=== PATIENT | female | born 2000 | race Caucasian/White ===

== ENCOUNTER 2024-12-24 12:09 | Emergency (ER) | payer MEDICARE, MEDICAID, SELFPAY ==
[2024-12-24] VITALS (7 sets, daily range): BP systolic 65–93; BP diastolic 42–54; PULSE 49–99; RESP 16–20; TEMP 32.6–36.8; O2SAT 97–99; BMI 21.6
--- NOTE | 2024-12-24 13:07 | XR_ITS ---
Examination: AP chest single view TECHNIQUE: AP portable supine chest single view Exam date and time: December 16, 2024 1329 hours Comparison December 2018 INDICATIONS: Shortness of breath today. FINDINGS: The film is rotated RPO Normal heart size No lobar pneumonia or pulmonary edema Severe scoliosis with orthopedic support rods IMPRESSION: No pneumonia or pulmonary edema
[2024-12-24 13:29] LABS: Lactate (Lactic Acid) 0.6 mMol/L (0.4-2.0)
[2024-12-24 13:31] LABS: Basophils % (Auto) 0 % (0-2.5); Eosinophils # (Auto) 0.1 Thou/mm3 (0.0-0.5); Eosinophils % (Auto) 1 % (0-10); Hematocrit 38.2 % (36.0-46.0); Hemoglobin 12.4 g/dL (12.0-16.0); Immature Granulocytes % (Auto) 0 % (0-0); Lymphocytes # (Auto) 1.1 Thou/mm3 (1.0-4.8); Lymphocytes % (Auto) 21 % (10-50); Mean Corpuscular HGB Conc 32.5 g/dl (31.0-37.0); Mean Corpuscular Hemoglobin 27.9 pg (25.0-35.0); Mean Corpuscular Volume 86 fL (80-100); Monocytes # (Auto) 0.4 Thou/mm3 (0.0-0.8); Monocytes % (Auto) 8 % (0-12); Neutrophils # (Auto) 3.4 Thou/mm3 (1.8-7.7); Neutrophils % (Auto) 69 % (37-80); Nucleated Red Blood Cell % 0 /100 WBC (0); Platelet Count 98 Thou/mm3 (140-440); RDW Standard Deviation 45.5 fL (36.4-46.3); Red Blood Count 4.44 Miln/mm3 (4.00-5.20)
--- NOTE | 2024-12-24 13:55 | PD.EDNEURO ---
Neuro Symptoms Deficit-RME/HPI General Chief Complaint: General Adult/Misc Complain Stated Complaint: SENT BY PCP :BRADYCARDIC/ HYPOTENSIVE X 2 DAYS Time Seen by Provider: 12/24/24 12:50 Arrival date/time: 12/24/24 12:09 RME / HPI RME / HPI Narrative: This section includes all my notes and documentations, including HPI, PE, and ED course.? Baljinder Hatfield MD HPI: 24-year-old female here with multiple hard to describe concerns. Since yesterday, she reports being unsteady when trying to stand and walk. And shaking, difficult to describe further. She reports no fever or chills or bodyaches or fatigue or malaise. No syncope or near syncope. No headache. No speech or visual impairment. No right-sided weakness or left-sided weakness. No numbness or tingling. No cough or congestion or sore throat. No chest pain or shortness of breath. 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 No other complaints. ROS: All negative except as documented in HPI. Physical Exam: General:? Alert and oriented.? No acute distress when remaining still.??Hypotension and hypothermia noted. Eyes:? Conjunctivae and lids clear.? PERRL. EOMI. ENT:? No nasal congestion.??Pharynx normal. TM normal bilaterally. Neck:? Supple.? No carotid bruit. No JVD. Heart:? RRR.? Lungs:? No respiratory distress.? Good air movement.? No rhonchi, wheezing, rales.?? Abdomen:? Soft and nontender.?? Back: No CVA tenderness. Legs:? No clubbing, cyanosis, edema.? Skin:? Warm and dry.?? Neuro:? Alert and oriented X 3.??No peripheral motor deficits. Cranial nerves II to XII grossly normal. Orthostatic vitals negative. I reviewed all diagnostic test results. My interpretation of the EKG is?Sinus bradycardia (45 bpm) with no ST-T changes. My interpretation of the chest x-ray is no pneumonia or pulmonary edema. My review of the CT report is?negative for acute hemorrhage, mass effect or midline shift. Blood tests and urine tests?unremarkable, except elevated TSH. At this point, diagnoses include?hypotension and hypothermia. Treatment here included?transient hypotension and hypothermia with unclear etiology. Significant improvement noted. Recommended supportive care and close monitoring at home. Based on my best medical judgment, made decision no further evaluation or treatment indicated at this time.? Patient (and father) understands and agrees to the discharge instructions customized and printed, see below. Discharge Instructions from Dr. Hatfield printed for you: 1. After extensive evaluation, there is no life-threatening conditions. Such as stroke or brain tumor or heart attack or blood poisoning. 2. Eat regular nutritious meals. For good hydration, increase oral fluid and maintain clear urine. If dark or yellow, increase oral fluid. 3. To prevent low temperature, wear urine of clothing and stay in warm environment. 4. See a private doctor on 12/25/2024 for recheck and further care. Ask to review all test results and official radiology reports, to make sure you receive all necessary follow-ups and monitoring, including final urine test results from today. 5. Seek immediate medical care with worsening or with any concerns. Baljinder Hatfield MD Related Data Home Medications ?Medication ?Instructions ?Recorded ?Confirmed cariprazine 1.5 mg capsule 1.5 mg PO HS 01/03/19 01/03/19 (Vraylar) fluoxetine 40 mg capsule (Prozac) 40 mg PO QDAY 01/03/19 01/03/19 trazodone 100 mg tablet 100 mg PO HS 01/03/19 01/03/19 Previous Rx's ?Medication ?Instructions ?Recorded hydrocodone 5 mg-acetaminophen 325 1 tab PO TID PRN pain #20 tabs 08/15/20 mg tablet ([place]) ibuprofen 400 mg tablet 400 mg PO Q8H PRN pain #10 tabs 11/12/20 Allergies Allergy/AdvReac Type Severity Reaction Status Date / Time morphine Allergy Severe Rash Verified 12/24/24 12:11 Review of Systems Review of Systems Systems Reviewed: All systems reviewed, normal except as documented Past Medical History Past Medical History CARDIAC: Negative Congestive Heart Failure RESPIRATORY: Negative Chronic Obstructive Pulmonary Disease (COPD) GENITOURINARY: Negative Renal Disease MUSCULOSKELETAL: Positive Scoliosis ENDOCRINE: Negative Diabetes Mellitus Type 1 or Diabetes Mellitus Type 2 OTHER HISTORY: Positive Developmental Delay Social History SMOKING STATUS: Never smoker ED Exam Narrative Physical exam: As noted in HPI Course Quality Measures none Orders Category Date Time Status Bedside COVID-19 Antigen Test NOW Care 12/24/24 13:06 Completed Bedside Influenza A&B Antigen Test NOW Care 12/24/24 13:06 Completed EKG (ED ONLY) *Do not use* NOW Care 12/24/24 13:07 Completed Initiate Warming Therapy NOW Care 12/24/24 13:24 Completed Miscellaneous Nursing Order NOW Care 12/24/24 17:03 Completed Orthostatic Vitals NOW Care 12/24/24 14:54 Completed Saline [Insert IV] NOW Care 12/24/24 13:06 Completed Straight [In and Out Catheter] X1 Care 12/24/24 13:06 Completed Straight [In and Out Catheter] X1 Care 12/24/24 17:05 Completed Diet Regular Diet 12/24/[address] head/brain wo con Stat Exams 12/24/24 16:20 Completed EKG (ED Only) Stat Exams 12/24/24 13:07 Ordered XR chest 1V portable Stat Exams 12/24/24 13:07 Completed Blood Culture (Lab) Stat Lab 12/24/24 13:15 Completed CBC Stat Lab 12/24/24 13:15 Completed CK [Creatine Kinase] Stat Lab 12/24/24 13:53 Completed CMP [Comprehensive Metabolic Panel] Stat Lab 12/24/24 13:53 Completed CRP [C-Reactive Protein] Stat Lab 12/24/24 13:53 Completed ESR [Sed Rate (ESR)] Stat Lab 12/24/24 13:15 Completed HCG Qualitative,Urine Stat Lab 12/24/24 19:35 Completed HCG,Qualitative Serum Stat Lab 12/24/24 13:53 Completed Lactate (Lactic Acid) Stat Lab 12/24/24 13:15 Completed Magnesium Stat Lab 12/24/24 13:53 Completed [place] Screen Stat Lab 12/24/24 13:53 Completed Procalcitonin Stat Lab 12/24/24 13:53 Completed TSH [Thyroid Stimulating Hormone] Stat Lab 12/24/24 13:53 Completed Troponin I Stat Lab 12/24/24 13:53 Completed UA, C/S IF [Urinalysis, C/S if Indicated] Stat Lab 12/24/24 19:35 Completed Dextrose 50% Syr [D50w Syringe Abboject] Med 12/24/24 16:54 Discontinued 50 ml IV X1 ONE Sodium Chloride 0.9% 1000 ml [Ns] 1,000 ml Med 12/24/24 14:54 Discontinued IV 999 mls/hr Sodium Chloride 0.9% 1000 ml [Ns] 1,000 ml Med 12/24/24 17:03 Discontinued IV 999 mls/hr Vital Signs Vital signs: Vital Signs Temperature 90.7 F L 12/24/24 12:51 Pulse Rate 49 L 12/24/24 12:51 Respiratory Rate 18 12/24/24 12:51 Blood Pressure 93/49 L 12/24/24 12:51 Pulse Oximetry (%) 99 12/24/24 12:51 Oxygen Delivery Method Room Air 12/24/24 12:51 Pulse ox is 99% on room air which is adequate. Neuro Symptoms / Deficit Patient data External records reviewed:: [facility] previous records (I reviewed ED visit on 01/01/2022 ) Clinical information provided by:: patient Social determinants that could affect healthcare access:: none Patient has the following chronic illnesses:: Developmental delay, bipolar disorder How is presenting disease/condition affected by chronic disease/condition?: uneffected by Evaluation data The following diagnostics were reviewed and interpreted by me:: EKG tracing(s) (My interpretation of the EKG: Sinus bradycardia (45 bpm) with no ST-T changes. Baljinder Hatfield MD) Lab and/or radiology exams considered but not ordered:: None Interpretation Summary: My interpretation of the chest x-ray is no pneumonia or pulmonary edema. My review of the CT report is?negative for acute hemorrhage, mass effect or midline shift. Medications / Prescriptions Medications or Prescriptions considered but not ordered:: None Medication administrations:: Medication Administration History Discontinued Medications Dextrose (Dextrose 50%-Water Inj 50 Ml Syringe) 50 ml IV X1 ONE Stop: 12/24/24 16:55 Last Admin: 12/24/24 17:18 Dose: 50 ml Documented By: SHAYAN Sodium Chloride (Ns) 1,000 mls @ 999 mls/hr IV .Q1H1M ONE Stop: 12/24/24 15:54 Last Infusion: 12/24/24 16:02 Dose: Infused Documented By: Admin: 12/24/24 15:01 Dose: 999 mls/hr Documented By: SHAYAN Sodium Chloride (Ns) 1,000 mls @ 999 mls/hr IV .Q1H1M ONE Stop: 12/24/24 18:03 Last Infusion: 12/24/24 19:25 Dose: Infused Documented By: Admin: 12/24/24 17:19 Dose: 999 mls/hr Documented By: SHAYAN IVF Consultations Consultation(s) initiated? (list below): No Diagnosis Neuro Differential Diagnosis: convulsions, delirium, subarachnoid hemorrhage, peripheral neuropathy, cerebrovascular accident, multiple sclerosis, transient cerebral ischemia and other Most likely diagnosis given after review of the tests above:: Transient hypotension and hypothermia with unclear etiology Admission Indicated Admission indicated?: not indicated Explain why admission is indicated or not indicated:: Did not meet the admission criteria Admission Request Was there a request for admission?: No Disposition Plan Disposition Plan: Discharge Discharge Attestation Discharge Attestation: The patient and all family members were given an opportunity to ask questions and understood the discharge instructions. Discharge instructions specifically effects, indications for sooner follow up or return to the emergency department, and the expected course of current diagnosis. Patient condition: Stable Discharge Plan Plan Patient Disposition: HOME (Self Care) Prescriptions/Referrals Prescriptions/Med Rec: No Action fluoxetine [Prozac] 40 mg Capsule 40 mg PO QDAY trazodone 100 mg Tablet 100 mg PO HS cariprazine [Vraylar] 1.5 mg Capsule 1.5 mg PO HS hydrocodone-acetaminophen [[place]] 5-325 mg tablet 1 tab PO TID MDD 3 PRN (Reason: pain) Qty: 20 0RF ibuprofen 400 mg tablet 400 mg PO Q8H PRN (Reason: pain) Qty: 10 0RF Referrals: No Primary/Family,Physician [Primary Care Provider] - In 1 week Problem List Clinical Impression: Hypotension, Hypothermia, Hypoglycemia Patient/Caregiver Discharge Instructions Discharge Activity: activity as tolerated Education Materials: ED Hypoglycemia, Nondiabetic, ED Low Blood Pressure, All Causes, ED Hypothermia Treatment Additional Instructions: Discharge Instructions from Dr. Hatfield printed for you: 1. After extensive evaluation, there is no life-threatening conditions. Such as stroke or brain tumor or heart attack or blood poisoning. 2. Eat regular nutritious meals. For good hydration, increase oral fluid and maintain clear urine. If dark or yellow, increase oral fluid. 3. To prevent low temperature, wear urine of clothing and stay in warm environment. 4. See a private doctor on 12/25/2024 for recheck and further care. Ask to review all test results and official radiology reports, to make sure you receive all necessary follow-ups and monitoring, including final urine test results from today. 5. Seek immediate medical care with worsening or with any concerns. Print Language: Serbian Stand Alone Forms: [employer] Info., Patient Portal Info Letter
--- NOTE | 2024-12-24 14:02 | PC.NURSE ---
Informed patient and care provider of need of urine sample.
[2024-12-24 14:04] LABS: Sed Rate (ESR) 16 mm/hr (0-20)
[2024-12-24 14:32] LABS: HCG,Qualitative Serum Negative
[2024-12-24 14:37] LABS: Alanine Aminotransferase 49 U/L (10-49); Albumin/Globulin Ratio 1.7 (1.2-2.2); Alkaline Phosphatase 103 U/L (46-116); Anion Gap 4 (7-16); Aspartate Amino Transferase 38 U/L (0-34); BUN/Creatinine Ratio 22 Ratio (12-20); Bilirubin,Total 0.3 mg/dL (0.3-1.2); Blood Urea Nitrogen 11 mg/dL (9-23); C-Reactive Protein 0.8 mg/dL (0.0-0.9); Calcium 9.8 mg/dL (8.3-10.6); Calcium (Corrected) 9.8 mg/dL (8.5-10.1); Carbon Dioxide 34.3 mMol/L (20.0-31.0); Chloride 102 mMol/L (98-107); Creatine Kinase 78 U/L (34-171); Creatinine (Component) 0.5 mg/dL (0.6-1.3); Estimated Creatinine Clearance 97.7 mL/min (>60); Globulin 2.3 gm/dL (2.3-3.5); Glucose 59 mg/dL (74-106); Magnesium 1.8 mg/dL (1.6-2.6); Osmolality,Calculated 276 (275-295); Potassium 4.3 mMol/L (3.4-5.1); Procalcitonin < 0.04 ng/ml (0.0-0.49); Sodium 140 mMol/L (136-145); Thyroid Stimulating Hormone 9.96 uIU/mL (0.55-4.78); Total Protein 6.3 gm/dL (5.7-8.2); Troponin I < 0.020 ng/mL (0.0-0.045); eGFR > 60 See Note
[2024-12-24 14:48] LABS: Mono Screen Negative (Negative)
--- NOTE | 2024-12-24 15:00 | PC.NURSE ---
PT RECTALPROBE FOR THERMOMETER CAME OUT, THIS RN REPLACED IT AT THIS TIME, ATTEMPTED TO GET URINE, PT UNABLE TO GO, WILL TRY AGAIN, PT REFUSING IN AND OUT CATHETER
[2024-12-24] MEDS: SODIUM CHLORIDE 0.9% 1000 ML 1,000 ML 999 ML IV ×2 (15:01→17:19)
--- NOTE | 2024-12-24 16:20 | XR_ITS ---
Examination: CT brain head without contrast. 2-D sagittal coronal reconstructions Date and time of exam:December 16, 2024 at 1612 hours INDICATIONS: Onset weakness and unsteadiness today CTDI: vol (mGy):42.3 DLP: (mGycm):864 Technique: Multiple CT axial sections of the brain have been obtained, 5 mm slice thickness. Contrast has not been administered. 2-D sagittal, coronal reconstructions have been obtained Low dose protocols were performed. One or more of the following dose reduction techniques were used; automated exposure control, adjustment of the mA and/or KV according to patient size, use of iterative reconstruction technique. Findings: No significant ventricular enlargement. Intra-axial or extra-axial hemorrhage density is not seen. No mass effect or midline shift Basal cisterns are not remarkable. Fourth ventricle is midline. Cranial vault intact. Impression: Negative for acute hemorrhage, mass effect or midline shift Advise clinical correlation and follow-up accordingly
[2024-12-24] MEDS: DEXTROSE 50%-WATER INJ 50 ML SYRINGE IV (17:18)
--- NOTE | 2024-12-24 17:34 | PD.HHCONS ---
[facility] Consultation - Hospitalist Data of Consult Primary Care Provider: Physician No Primary/Family Consult Narrative History of present illness: Patient is a 24-year-old female with history of Prader-Willi syndrome, seizure, and developmental delay, who presented with a chief complaint of hypotension and hypothermia. Patient was sent by her PCP. She was found to have bradycardia and hypotension. Patient has baseline developmental delay and did not complain of any symptoms besides feeling cold. She reported no nausea, vomiting, subjective fevers, difficulty breathing, or abdominal pain. In the ED, she was hypothermic 90.7 Fahrenheit. She was hypotensive 84/54. She was bradycardic in the 40s. CBC and BMP showed no pertinent abnormalities. CT head was negative for acute changes. Patient received 1 L of IV fluids in the ED. Her HR improved to 88. Patient does not smoke cigarettes, drink alcohol, or use illicit drugs cc:: cc: Review of Systems Review of Systems Narrative Review of Systems: 12 point of system reviewed. All negative except as mentioned in the HPI Meds Home Medications and Allergies Home Medications ?Medication ?Instructions ?Recorded ?Confirmed ?Type cariprazine 1.5 mg capsule 1.5 mg PO HS 01/03/19 01/03/19 History (Vraylar) fluoxetine 40 mg capsule (Prozac) 40 mg PO QDAY 01/03/19 01/03/19 History trazodone 100 mg tablet 100 mg PO HS 01/03/19 01/03/19 History Allergies Allergy/AdvReac Type Severity Reaction Status Date / Time morphine Allergy Severe Rash Verified 12/24/24 12:11 Exam Vital Signs Temp Pulse Resp BP Pulse Ox O2 Del Method 92.1 F L 70 16 88/47 L 99 Room Air 12/24/24 14:51 12/24/24 16:08 12/24/24 14:51 12/24/24 16:08 12/24/24 12:51 12/24/24 12:51 Narrative General: Alert and oriented x3. Has a slowed response and is difficult to understand likely from her baseline developmental delay Eyes: Pupils are equal and reactive to light bilaterally. HEENT: Atraumatic, normocephalic. No JVD noted. Scratch noted on the scalp, self-induced per family. Mucous membranes are dry Cardiovascular: Normal S1 and S2. Normal rate and regular rhythm. No murmurs appreciated. No peripheral pitting edema noted. No JVD noted. Respiratory: No respiratory distress. Lungs are clear to auscultation bilaterally. No wheezing or crackles heard. Abdomen: Soft, nontender, nondistended. Skin: No rash. Cold to touch. Musculoskeletal: No gross injuries. Able to move all 4 extremities. Neuro: Alert and oriented x3. Sensation is intact throughout. Strength is 5/5 and symmetric. No focal neuro deficits. Psych: Normal affect and mood. Results - Hospitalist Labs Diagrams: 12/24/24 13:15 12/24/24 13:53 Labs: Short CBC 12/24/24 Range/Units 13:15 WBC 5.0 (3.6-11.0) Thou/mm3 Hgb 12.4 (12.0-16.0) g/dL Hct 38.2 (36.0-46.0) % Plt Count 98 L (140-440) Thou/mm3 BMP 12/24/24 13:53 Sodium 140 Potassium 4.3 Chloride 102 Carbon Dioxide 34.3 H BUN 11 Creatinine 0.5 L Glucose 59 L Calcium 9.8 Cardiac Enzymes 12/24/24 Range/Units 13:53 Total Creatine Kinase 78 (34-171) U/L Troponin I < 0.020 (0.0-0.045) ng/mL Liver Function 12/24/24 Range/Units 13:53 Total Bilirubin 0.3 (0.3-1.2) mg/dL AST 38 H (0-34) U/L ALT 49 (10-49) U/L Alkaline Phosphatase 103 (46-116) U/L Albumin 4.0 (3.5-5.0) gm/dL Assessment & Plan -Hospitalist Patient Synopsis 24-year-old female with Prader-Willi syndrome who presented with hypotension, bradycardia, and hypothermia Hypertension Bradycardia Hypothermia Dehydration Her bradycardia resolved with IV fluids Patient clinically appears dehydrated She is asymptomatic except for feeling cold No evidence of infection Patient's hypotension is likely from dehydration Her hypothermia is likely from low room temperature as the weather is very cold outside. Unlikely due to infection EKG reviewed by me: Showed sinus bradycardia without pertinent ST or T wave changes Plan: Markus almaguer in the ED Warm ED room Continue IV fluids Monitor vitals If BP improves and temperature improves, she can be discharged from ED. If he remains hypotensive and hypothermic despite above-mentioned treatment, may admit for further evaluation and management. Seizure disorder Prader-Willi syndrome Developmental delay with behavioral disturbances Resume home medications Follow-up with PCP Discussed with ED physician Discussed with locomotive electrician Measures Quality Measures none
--- NOTE | 2024-12-24 18:00 | PC.NURSE ---
PT CONTINUES WARM THERAPY WITH PROSPER RAUSCH. 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 PT GIVEN SANDWICH AND CHIPS.
[2024-12-24 19:51] LABS: Collection Type, Urine Clean Catch; Squamous Epithelial Cell,Urine 0 /hpf (0-5)
[2024-12-24 20:24] LABS: Bilirubin,Urine Negative (Negative); Blood,Urine Negative (Negative); Clarity,Urine Clear (Clear/Hazy); Color,Urine Lt-Yellow (Lt Yel-Yel); Culture Indicated,Urine Not Indicated; Glucose, Urine 3+ (Negative); Ketones,Urine Negative (Negative); Leukocyte Esterase,Urine Negative (Negative); Nitrite,Urine Negative (Negative); PH,Urine 6.5 (5.0-7.0); Protein,Urine Negative (Neg - Trace); RBC,Urine 1 /hpf (0-3); Specific Gravity,Urine 1.011 (1.001-1.035); Urobilinogen,Urine Negative mg/dL (0.0-1.0); WBC,Urine < 1 /hpf (0-5)
[2024-12-24 20:32] LABS: HCG Qualitative,Urine Negative
== END 2024-12-25 | disposition home or self-care (01) ==
PROVIDERS: Emergency Provider Emergency Medicine
DX: T68.XXXA Hypothermia, initial encounter (principal); I95.9 Hypotension, unspecified; E16.2 Hypoglycemia, unspecified; R00.1 Bradycardia, unspecified; R06.02 Shortness of breath; R53.1 Weakness
CPT/HCPCS: 36415; 70450; 71045; 80053; 81001; 81025; 82550; 83605; 83735; 84145; 84443; 84484; 84703; 85025; 85652; 86140; 86308; 87040; 87400; 87811; 93005; 96360; 96361; 99284; J7030

== ENCOUNTER 2025-01-23 10:46 | Inpatient (IN) | payer MEDICARE, MEDICAID, SELFPAY ==
[2025-01-23] VITALS (12 sets, daily range): BP systolic 76–112; BP diastolic 38–80; PULSE 55–102; RESP 15–23; TEMP 32.8–36.5; O2SAT 94–99; BMI 23.8; BMI 24.4
--- NOTE | 2025-01-23 11:02 | XR_ITS ---
Examination: CT brain head without contrast. 2-D sagittal coronal reconstructions Date and time of exam:January 23, 2025 1113 hrs. Indications: Onset generalized head pain today with loss of balance CTDI: vol (mGy):43.3 DLP: (mGycm):869 Technique: Multiple CT axial sections of the brain have been obtained, 5 mm slice thickness. Contrast has not been administered. 2-D sagittal, coronal reconstructions have been obtained Low dose protocols were performed. One or more of the following dose reduction techniques were used; automated exposure control, adjustment of the mA and/or KV according to patient size, use of iterative reconstruction technique. Findings: No significant ventricular enlargement. Small area encephalomalacia posterior right parietal lobe Intra-axial or extra-axial hemorrhage density is not seen. No mass effect or midline shift Basal cisterns are not remarkable. Fourth ventricle is midline. Cranial vault intact. Prominent ethmoid chronic sinusitis Impression: Negative for acute hemorrhage, mass effect or midline shift If symptoms including ataxia persist, consider brain MRI follow-up
--- NOTE | 2025-01-23 11:03 | PD.EDRME ---
Rapid Medical Screening Exam RME Arrival date/time: 01/23/25 10:46 24-year-old female with a history of developmentally delayed presents to the emergency room with a chief complaint of a headache, cough, fevers x 2 days I have greeted and performed a focused initial assessment of this patient. A comprehensive ED assessment and evaluation of the patient, analysis of all test results, and completion of the medical decision making process will be conducted by additional ED providers. Chief Complaint: Headache Vital signs reviewed by provider: Yes
--- NOTE | 2025-01-23 11:26 | XR_ITS ---
Examination: AP chest single view Technique: AP portable upright chest single view Exam date and time: January 23, 2025 1131 hrs. Comparison December 16, 2024 Sepsis shortness of breath today. Findings: Prominent right lower lobe pneumonia Large retrocardiac gastric hernia Orthopedic support rods dorsal spine No significant cardiac enlargement Impression: Significant right lower lung zone pneumonia
[2025-01-23 11:33] LABS: Lactate (Lactic Acid) 0.5 mMol/L (0.4-2.0)
[2025-01-23 11:33] LABS: Collection Type, Urine Clean Catch; Squamous Epithelial Cell,Urine 0 /hpf (0-5)
--- NOTE | 2025-01-23 11:35 | PD.EDHA ---
ED Headache RME/HPI General Chief Complaint: Headache Stated Complaint: HEADACHE, OFF BALANCE , COUGH Time Seen by Provider: 01/23/25 11:10 Source: patient Arrival date/time: 01/23/25 10:46 This is a 24-year-old female history of intellectual disability, Prader-Willi, spinal surgery age of 64 years old and behavioral issues was brought into the emergency department by caregiver for complaints of 3 days generalized weakness, headache. According to the caregiver the patient has been experiencing similar symptoms since December 24 on is her last ER visit. She has experiencing hypertension, and hypothermia. Today she is brought in on a second occasion due to increased generalized weakness. She did follow-up with her doctor Dr. Lin outpatient which he sent her to cardiology. Caregiver reports the patient had a full cardiology workup with echo x 2 which were normal. Patient continues to have symptoms. Denies fever, chills no rigors no lethargy. Mode of arrival: ambulatory Limitations: physical limitation RME / HPI RME / HPI Narrative: 01/23/25 10:46 24-year-old female with a history of developmentally delayed presents to the emergency room with a chief complaint of a headache, cough, fevers x 2 days I have greeted and performed a focused initial assessment of this patient. A comprehensive ED assessment and evaluation of the patient, analysis of all test results, and completion of the medical decision making process will be conducted by additional ED providers. Related Data Home Medications ?Medication ?Instructions ?Recorded ?Confirmed fluoxetine 40 mg capsule (Prozac) 60 mg PO QDAY 01/03/19 01/23/25 trazodone 100 mg tablet 100 mg PO HS 01/03/19 01/23/25 brexpiprazole 4 mg tablet (Rexulti) 4 mg PO QDAY 01/23/25 01/23/25 docusate sodium 100 mg capsule 100 mg PO BID 01/23/25 01/23/25 loratadine 10 mg tablet 10 mg PO QDAY 01/23/25 01/23/25 Allergies Allergy/AdvReac Type Severity Reaction Status Date / Time morphine Allergy Severe Rash Verified 01/23/25 10:49 Review of Systems Review of Systems Systems Reviewed: All systems reviewed, normal except as documented Narrative Review of Systems: Gen: No fever, no chills, no weight loss, malaise fatigue EYES: No discharge, no visual changes, no pain HEENT: No ear pain, no congestion, no sore throat PULM: No shortness of breath, no cough, no congestion CV: No chest pain, no dyspnea on exertion, no palpitations GI: No nausea, no vomiting, no diarrhea, no pain, no constipation : No frequency, no urgency, no dysuria Musc/skel: No joint pain, no back pain Skin: No rash Psyc: No hallucinations, no depression Heme/Lymph: No easy bleeding or bruising tendencies Neuro: No weakness, + headache ED Exam Narrative Physical exam: Chronically ill-appearing 24-year-old female entering questions slow to answer questions. Verbal. Appears mildly pale General Limitations: Present physical limitation General appearance: Present alert Head Head exam: Present atraumatic and other Expanded Head Exam Head exam physical: Present abrasion Head image:  1. Left lateral forehead scab erythemic mild cellulitic pattern. Right ecchymosis mild right eye. Eye Eye exam: Present normal appearance, PERRL, EOMI and other ENT ENT exam: Present normal exam, normal oropharynx and mucous membranes moist Neck Neck exam: Present normal inspection, full ROM and trachea midline Chest Chest inspection: Present normal inspection and symmetric chest wall rise Respiratory Respiratory exam: Present normal lung sounds bilaterally; Absent respiratory distress, wheezes or stridor Cardiovascular Cardiovascular exam: Present regular rate, normal rhythm and normal heart sounds Abdominal Exam Abdominal exam: Present soft, tenderness, normal bowel sounds and other (Superficial abrasions noted to the left mid abdomen. Mild tenderness); Absent distention or rebound Extremities Exam Extremities exam: Present normal inspection, full ROM and normal capillary refill; Absent pedal edema Expanded Lower Extremity Exam Knee exam: Present other (Bilateral lower extremities multiple bruising throughout lower legs.) Back Exam Back exam: Present normal inspection and full ROM Neurological Exam Neurological exam: Present alert, oriented X3 and CN II-XII intact Psychiatric Psychiatric exam: Present normal affect and normal mood Skin Skin exam: Present warm, dry, intact and normal color Course Quality Measures none Orders Category Date Time Status Bedside COVID-19 Antigen Test NOW Care 01/23/25 11:02 Active Bedside Influenza A&B Antigen Test NOW Care 01/23/25 11:[address] Screening NOW Care 01/23/25 13:03 Active EKG (ED ONLY) *Do not use* NOW Care 01/23/25 11:37 Completed Initiate Warming Therapy NOW Care 01/23/25 12:46 Active Miscellaneous Nursing Order NOW Care 01/23/25 11:27 Active Miscellaneous Nursing Order X1 Care 01/23/25 11:48 Active Occult Blood,Stool (Nursing) NOW Care 01/23/25 13:[address] abdomen pelvis w con Stat Exams 01/23/25 13:[address] head/brain wo con Stat Exams 01/23/25 11:02 Completed EKG (ED Only) Stat Exams 01/23/25 11:37 Draft XR chest 1V portable Stat Exams 01/23/25 11:26 Completed Ammonia Stat Lab 01/23/25 12:05 Completed BNP [B-Type Natriuretic Peptide] Stat Lab 01/23/25 12:05 Completed Blood Culture (Lab) Stat Lab 01/23/25 11:25 Received CBC Stat Lab 01/23/25 11:25 Completed CMP [Comprehensive Metabolic Panel] Stat Lab 01/23/25 11:25 Completed Drug Screen,Urine Stat Lab 01/23/25 11:24 Completed Free T3 Stat Lab 01/23/25 11:25 Completed HCG,Qualitative Serum Stat Lab 01/23/25 11:25 Completed Lactate (Lactic Acid) Stat Lab 01/23/25 11:25 Completed JONG [Alcohol, Blood Medical] Stat Lab 01/23/25 12:05 Completed Magnesium Stat Lab 01/23/25 11:25 Completed PT [Prothrombin Time with INR] Stat Lab 01/23/25 11:25 Completed Procalcitonin Stat Lab 01/23/25 11:25 Completed Sed Rate (ESR) Stat Lab 01/23/25 11:25 Completed T4 (Thyroxine) Stat Lab 01/23/25 11:25 Completed Thyroid Stimulating Hormone Stat Lab 01/23/25 11:25 Completed Troponin I Stat Lab 01/23/25 11:25 Completed UA [Urinalysis] Stat Lab 01/23/25 11:24 Completed Urine Culture Stat Lab 01/23/25 11:24 Received Venous Blood Gas Stat Lab 01/23/25 12:05 Completed Magnesium Sulfate 2 GM Ivpb [Magnesium Sulfate Ivpb] Med 01/23/25 13:41 Discontinued 2 gm in 50 ml IV X1 Sodium Chloride 0.9% 1000 ml [Ns] 1,000 ml Med 01/23/25 11:26 Discontinued IV 999 mls/hr cefTRIAXone [Rocephin] 1,000 mg Med 01/23/25 13:13 Discontinued SODIUM CHLORIDE 0.9% (Popper) [NS 0.9% (Popper)] 50 ml IV X1 Vital Signs Vital signs: Vital Signs Pulse Rate 77 01/23/25 11:02 Respiratory Rate 20 01/23/25 11:02 Blood Pressure 76/38 L 01/23/25 11:02 Pulse Oximetry (%) 95 01/23/25 11:02 Oxygen Delivery Method Room Air 01/23/25 11:02 Headache MDM Narrative MDM Narrative:: This is a 24-year-old female history of intellectual disability, Prader-Willi, spinal surgery age of 64 years old and behavioral issues was brought into the emergency department by caregiver for complaints of 3 days generalized weakness, headache. According to the caregiver the patient has been experiencing similar symptoms since December 24 on is her last ER visit. She has experiencing hypertension, and hypothermia. Today she is brought in on a second occasion due to increased generalized weakness. She did follow-up with her doctor Dr. Lin outpatient which he sent her to cardiology. Caregiver reports the patient had a full cardiology workup with echo x 2 which were normal. Patient continues to have symptoms. Denies fever, chills no rigors no lethargy. 1115-Upon arrival patient's blood pressure was 76/38, temperature 91 rectal. Immediately when I evaluated the patient sepsis alert was called IV fluids 30/kg ordered initiated in ordered additional labs. Immediately after I assume care of patient I did discuss my case with my attending physician Dr. Hernandez. Has been notified in the process of the care of this patient. And agrees with plan of care. Patient is awake and alert answering questions according to the provide the patient is slower to respond questions has been worsening over this past month. CT reviewed which is negative for any acute abnormalities, chest x-ray shows some right lower base pneumonia. Ceftriaxone ordered. Urinalysis is negative. CBC-no leukocytosis. Lactic, Pro-Segun negative. Blood cultures pending. noted anemia drop 2 g from last visit. CMP-electrolyte imbalance. Platelets lowered from last visit. PT/INR normal. elevated liver enzymes Upon reassessment patient's blood pressure did improve to 98/65, 66 heart rate temperature still 91 rectal. Patient oxygenating well. On room air. At this time I do feel she continue receiving her IV fluids, ceftriaxone. Warming measures to continue. Most likely admission after CT abdomen and pelvis orders. Dx# Hypotension, hypothermia Hypothyroidism Electrolyte imbalance. Pneumonia rule out sepsis Called and spoke to on-call hospitalist Yarely Solis. Case discussed. Pending admission. The high probability of sudden, clinically significant deterioration in the patient?s condition required the highest level of my preparedness to intervene urgently. The services I provided to this patient were to treat and/or prevent clinically significant deterioration.Services included the following: chart data review, reviewing nursing notes and/or old charts, documentation time, internal control consultant collaboration regarding findings and treatment options, medication orders and management, direct patient care, vital sign assessments and ordering, interpreting and reviewing diagnostic studies and lab tests.Aggregate critical care time includes only time during which I was engaged in work directly related to the patient?s care, as described above, whether at bedside or elsewhere in the Emergency Department. It did not include time spent performing other reported procedures or the services of residents, students, nurses or physician assistants. Patient data External records reviewed:: [facility] previous records Clinical information provided by:: patient and cone worker Social determinants that could affect healthcare access:: none Patient has the following chronic illnesses:: Cardiomegaly, intellectual disabilities, behavioral disabilities How is presenting disease/condition affected by chronic disease/condition?: uneffected by Evaluation data The following diagnostics were reviewed and interpreted by me:: lab results, radiology exam(s) and EKG tracing(s) Lab and/or radiology exams considered but not ordered:: Imaging ordered. Interpretation Summary: Examination: CT brain head without contrast. 2-D sagittal coronal reconstructions Date and time of exam:January 23, 2025 1113 hrs. Indications: Onset generalized head pain today with loss of balance CTDI: vol (mGy):43.3 DLP: (mGycm):869 Technique: Multiple CT axial sections of the brain have been obtained, 5 mm slice thickness. Contrast has not been administered. 2-D sagittal, coronal reconstructions have been obtained Low dose protocols were performed. One or more of the following dose reduction techniques were used; automated exposure control, adjustment of the mA and/or KV according to patient size, use of iterative reconstruction technique. Findings: No significant ventricular enlargement. Small area encephalomalacia posterior right parietal lobe Intra-axial or extra-axial hemorrhage density is not seen. No mass effect or midline shift Basal cisterns are not remarkable. Fourth ventricle is midline. Cranial vault intact. Prominent ethmoid chronic sinusitis Impression: Negative for acute hemorrhage, mass effect or midline shift If symptoms including ataxia persist, consider brain MRI follow-up Examination: AP chest single view Technique: AP portable upright chest single view Exam date and time: January 23, 2025 1131 hrs. Comparison December 16, 2024 Sepsis shortness of breath today. Findings: Prominent right lower lobe pneumonia Large retrocardiac gastric hernia Orthopedic support rods dorsal spine No significant cardiac enlargement Impression: Significant right lower lung zone pneumonia Examination: CT abdomen with intravenous contrast CT pelvis with intravenous contrast 2-D coronal reconstructions 2-D sagittal reconstructions Date and time of exam:January 23, 2025 1334 hrs. Indications: Abdominal pain and distention this week, elevated liver function tests on laboratory examination. CTDI: vol (mGy) 4.16 DLP: (mGycm) 182 Technique: Multiple axial sections of the abdomen and pelvis have been obtained. 64 slice high-resolution scanner used. 3 mm axial sections have been obtained, post intravenous injection 40 cc [id number] 2-D sagittal, coronal reconstructions obtained. Low dose protocols were performed. One or more of the following dose reduction techniques were used; automated exposure control, adjustment of the mA and/or KV according to patient size, use of iterative reconstruction technique. Findings: Significant pneumonia in the right middle lobe, consider aspiration pneumonia Large retrocardiac gastric hernia with rotation of the stomach No focal liver or splenic lesions No gallstones No pancreatic mass Aorta normal size No bowel obstruction Normal appendix Colonic diverticulosis, no diverticulitis Distended urinary bladder Mild free fluid in the pelvis Atrophic uterus Severe osteopenia Partial visualization extensive thoracolumbar orthopedic stabilization process, severe lumbar dextroscoliosis Impression: Significant pneumonia in the right middle lobe, consider aspiration pneumonia Large retrocardiac gastric hernia with rotation of the stomach and possible obstruction of the stomach at the level of the hemidiaphragm, clinical correlation advised, consider surgical consultation EKG medically necessary in the evaluation of sepsis. And interpreted by me and ED physician at the time of patient evaluation. Normal sinus rhythm with a rate of 51. MD and QT intervals within normal limits. No ST/T changes. No STEMI. Interpretation: Bradycardia normal EKG. Medications / Prescriptions Medications or Prescriptions considered but not ordered:: no Medication administrations:: Medication Administration History Discontinued Medications Sodium Chloride (Ns) 1,000 mls @ 999 mls/hr IV .Q1H1M ONE Stop: 01/23/25 12:26 Last Infusion: 01/23/25 13:56 Dose: Infused Documented By: Admin: 01/23/25 12:45 Dose: 999 mls/hr Documented By: CALLIE Ceftriaxone Sodium 1,000 mg/ (Sodium Chloride) 50 mls @ 100 mls/hr IV X1 ONE Stop: 01/23/25 13:42 Last Infusion: 01/23/25 15:10 Dose: Infused Documented By: Admin: 01/23/25 14:45 Dose: 100 mls/hr Documented By: OCTAVIO Magnesium Sulfate (Magnesium Sulfate Ivpb) 2 gm in 50 mls @ 25 mls/hr IV X1 ONE Stop: 01/23/25 15:40 Last Admin: 01/23/25 15:14 Dose: 25 mls/hr Documented By: CALLIE All medications administered and effective Consultations Consultation(s) initiated? (list below): No Diagnosis Differential diagnosis headache: tension headache, headache, sinusitis and other Most likely diagnosis given after review of the tests above:: Dx# Hypotension, hypothermia Hypothyroidism Electrolyte imbalance. Pneumonia rule out sepsis Admission Indicated Admission indicated?: indicated Admission Request Was there a request for admission?: Yes Admission Attestation Admission request attestation: Discussed case with [] from Hospitalist service regarding admission. Discussed patients ED course, exam findings, labs, and radiology results. The Hospitalist [agrees,declines] to accept the patient for admission. Disposition Plan Disposition Plan: Admit Discharge Plan Plan Patient Disposition: Admit Acute Care w/in Hospital Patient condition on transfer: Stable Prescriptions/Referrals Prescriptions/Med Rec: No Action fluoxetine [Prozac] 40 mg Capsule 60 mg PO QDAY trazodone 100 mg Tablet 100 mg PO HS docusate sodium 100 mg capsule 100 mg PO BID loratadine 10 mg tablet 10 mg PO QDAY Rexulti 4 mg tablet 4 mg PO QDAY Referrals: John Millard MD [Primary Care Provider] - In 1 week Problem List Clinical Impression: Hypothyroidism, Electrolyte imbalance, Hypothermia, Pneumonia Patient/Caregiver Discharge Instructions Discharge Activity: activity as tolerated Print Language: Setswana Stand Alone Forms: [employer]cny Award Info., Patient Portal Info Letter PA/ASSEMBLER CAMPER Supervising Physician PA/ASSEMBLER CAMPER Supervising Physician: Dr. Hernandez
--- NOTE | 2025-01-23 11:37 | EKG_ITS ---
[facility] Test Date: 2025-01-23 Pat Name: SELENE PENA Department: Room: - Gender: Female Half Sole Fitter: : 2000 Requested By: Adilia Naidu ([facility]) Ramón Order Number: [id number] Reading MD: Adilia Naidu ([facility]) Ramón Measurements Intervals [employer] Rate: 51 P: 48 OK: 168 QRS: 51 QRSD: 102 T: 63 QT: 405 QTc: 375 Interpretive Statements ELECTRONIC ATRIAL PACEMAKER ABNORMAL RHYTHM ECG Compared to ECG 12/25/2024 13:37:22 Sinus bradycardia no longer present /store/S0/[id number].pdf
[2025-01-23 11:42] LABS: Basophils % (Auto) 0 % (0-2.5); Eosinophils % (Auto) 0 % (0-10); Hematocrit 31.5 % (36.0-46.0); Hemoglobin 10.5 g/dL (12.0-16.0); Immature Granulocytes % (Auto) 1 % (0-0); Immature Granulocytes Auto 0.03 Thou/mm3 (0.00-0.00); Lymphocytes # (Auto) 0.4 Thou/mm3 (1.0-4.8); Lymphocytes % (Auto) 7 % (10-50); Mean Corpuscular HGB Conc 33.3 g/dl (31.0-37.0); Mean Corpuscular Hemoglobin 28.1 pg (25.0-35.0); Mean Corpuscular Volume 84 fL (80-100); Monocytes # (Auto) 0.3 Thou/mm3 (0.0-0.8); Monocytes % (Auto) 6 % (0-12); Neutrophils # (Auto) 4.5 Thou/mm3 (1.8-7.7); Neutrophils % (Auto) 85 % (37-80); Nucleated Red Blood Cell # 0.02 Thou/mm3 (0.00-0.00); Nucleated Red Blood Cell % 0 /100 WBC (0); RDW Standard Deviation 47.1 fL (36.4-46.3); Red Blood Count 3.74 Miln/mm3 (4.00-5.20); White Blood Count 5.3 Thou/mm3 (3.6-11.0)
[2025-01-23 11:45] LABS: Bilirubin,Urine Negative (Negative); Blood,Urine Negative (Negative); Clarity,Urine Clear (Clear/Hazy); Color,Urine Colorless (Lt Yel-Yel); Glucose, Urine Negative (Negative); Ketones,Urine Negative (Negative); Leukocyte Esterase,Urine Negative (Negative); Nitrite,Urine Negative (Negative); Protein,Urine Negative (Neg - Trace); RBC,Urine < 1 /hpf (0-3); Specific Gravity,Urine 1.004 (1.001-1.035); Urobilinogen,Urine Negative mg/dL (0.0-1.0); WBC,Urine < 1 /hpf (0-5)
[2025-01-23 12:09] LABS: Alanine Aminotransferase 254 U/L (10-49); Albumin, Serum 3.7 gm/dL (3.5-5.0); Albumin/Globulin Ratio 1.5 (1.2-2.2); Alkaline Phosphatase 137 U/L (46-116); Anion Gap 6 (7-16); Aspartate Amino Transferase 135 U/L (0-34); BUN/Creatinine Ratio 27 Ratio (12-20); Bilirubin,Total 0.5 mg/dL (0.3-1.2); Blood Urea Nitrogen 8 mg/dL (9-23); Calcium 9.7 mg/dL (8.3-10.6); Calcium (Corrected) 9.9 mg/dL (8.5-10.1); Carbon Dioxide 31.6 mMol/L (20.0-31.0); Chloride 95 mMol/L (98-107); Creatinine (Component) 0.3 mg/dL (0.6-1.3); Estimated Creatinine Clearance 173.2 mL/min (>60); Globulin 2.5 gm/dL (2.3-3.5); Glucose 72 mg/dL (74-106); Osmolality,Calculated 263 (275-295); Potassium 3.9 mMol/L (3.4-5.1); Procalcitonin 0.08 ng/ml (0.0-0.49); Sodium 133 mMol/L (136-145); Total Protein 6.2 gm/dL (5.7-8.2); eGFR > 60 See Note
[2025-01-23 12:11] LABS: Base Excess, Venous 8 (-3-3); O2 Saturation, Venous 59 % (96-97); PCO2, Venous 49 mmHg (36-56); PO2, Venous 29 mmHg (15-58); pH, Venous 7.45 (7.33-7.66)
[2025-01-23 12:11] LABS: HCG,Qualitative Serum Negative
[2025-01-23 12:12] LABS: Platelet Count 34 Thou/mm3 (140-440)
[2025-01-23 12:15] LABS: Sed Rate (ESR) 66 mm/hr (0-20)
[2025-01-23 12:20] LABS: T4 (Thyroxine) 9.2 mcg/dL (4.5-10.9)
[2025-01-23 12:21] LABS: Prothrombin Time 10.5 Seconds (9.0-12.2)
[2025-01-23 12:26] LABS: Free T3 2.4 pg/mL (2.3-4.2); Magnesium 1.4 mg/dL (1.6-2.6); Thyroid Stimulating Hormone 18.71 uIU/mL (0.55-4.78); Troponin I < 0.002 ng/mL (0.0-0.045)
[2025-01-23 12:26] LABS: Amphetamine/Methamp Scrn,U Negative (Negative); Barbiturate Screen,Urine Negative (Negative); Benzodiazepines Screen,Urine Negative (Negative); Benzoylecgonine Screen, Ur Negative (Negative); Fentanyl Screen,Urine Negative (Negative); Opiate Screen,Urine Negative (Negative); THC Screen,Urine Negative (Negative)
[2025-01-23 12:33] LABS: Alcohol, Blood Medical < 3.0 mg/dL (0-10.0); Ammonia < 10 uMol/L (11-32)
[2025-01-23 12:35] LABS: B-Type Natriuretic Peptide 112 pg/mL (0-100)
[2025-01-23] MEDS: SODIUM CHLORIDE 0.9% 1000 ML 1,000 ML 999 ML IV (12:45)
--- NOTE | 2025-01-23 13:03 | XR_ITS ---
Examination: CT abdomen with intravenous contrast CT pelvis with intravenous contrast 2-D coronal reconstructions 2-D sagittal reconstructions Date and time of exam:January 23, 2025 1334 hrs. Indications: Abdominal pain and distention this week, elevated liver function tests on laboratory examination. CTDI: vol (mGy) 4.16 DLP: (mGycm) 182 Technique: Multiple axial sections of the abdomen and pelvis have been obtained. 64 slice high-resolution scanner used. 3 mm axial sections have been obtained, post intravenous injection 40 cc Isovue-370 2-D sagittal, coronal reconstructions obtained. Low dose protocols were performed. One or more of the following dose reduction techniques were used; automated exposure control, adjustment of the mA and/or KV according to patient size, use of iterative reconstruction technique. Findings: Significant pneumonia in the right middle lobe, consider aspiration pneumonia Large retrocardiac gastric hernia with rotation of the stomach No focal liver or splenic lesions No gallstones No pancreatic mass Aorta normal size No bowel obstruction Normal appendix Colonic diverticulosis, no diverticulitis Distended urinary bladder Mild free fluid in the pelvis Atrophic uterus Severe osteopenia Partial visualization extensive thoracolumbar orthopedic stabilization process, severe lumbar dextroscoliosis Impression: Significant pneumonia in the right middle lobe, consider aspiration pneumonia Large retrocardiac gastric hernia with rotation of the stomach and possible obstruction of the stomach at the level of the hemidiaphragm, clinical correlation advised, consider surgical consultation
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
[2025-01-23 13:57] LABS: Slide Review Platelets confirmed
[2025-01-23] MEDS: cefTRIAXone 1,000 MG in SODIUM CHLORIDE 0.9% (Popper) 50 ML 100 MG IV (14:45)
[2025-01-23] MEDS: Magnesium Sulfate 2 GM Ivpb 2 GM/50 ML BAG IV (15:14)
--- NOTE | 2025-01-23 15:53 | XR_ITS ---
Examination: Abdomen sonogram, complete Date and time of exam: January 23, 2025 1617 hrs. Indications: Hypotension, bradycardia, elevated liver function tests today. Technique: Multiple real-time grayscale transabdominal sonographic images of the abdomen have been obtained. Findings: Normal gallbladder Normal common bile duct 0.3 cm Pancreatic head 2.0 cm Mid and distal aorta normal size Liver 14.3 cm smooth contour no masses Normal hepatopedal portal venous flow Patent IVC Right kidney 8.2 cm renal cortex 0.9 cm Left kidney 8.6 cm renal cortex 1.4 cm No hydronephrosis Spleen 7.9 cm Impression: Normal gallbladder Liver normal size no focal liver lesions Small kidneys with bilateral renal cortical thinning, no hydronephrosis
--- NOTE | 2025-01-23 16:01 | PD.RESHP ---
Documentation for date of: 01/23/25 HPI History of Present Illness Chief complaint: headache History of present illness: Ms. Barb Tejeda is a 24 year old female with PMH of Prader Willi disease, distant history of seizures (not on anti-epileptic medication) who [place] the [place] [facility] for headache. Patient accompanied by caregiver and her father. Headache located on forehead over skin lesion that she picks at. Endorses productive cough x 1 day with subjective fever. Denies chills, chest pain, stomach pain, dysuria, constipation, diarrhea. Denies sick contact, recent travel or recent visitors, recent changes to home medications. Appetite is good, unchanged. Per father and caregiver at bedside, patient has had progressive decline since November. She has been hypothermic, lethargic, increased ankle swelling, increasing tremors and difficulty walking over the last month. She was seen in the ER a month ago also found to have thrombocytopenia, bradycardia, and hypothermia and was recommended outpatient follow up. She saw brick off bearer Dr. Castillo and was told her echo looked fine x2 and her symptoms may be neurologic-related. She was referred to neurologist Dr. Moon who they have not seen yet. In the ER, patient was hypotensive at 76/38 and hypothermic at 91. She was given 1L of IVF and ceftriaxone, and a bare hugger. Her blood pressure and temperature improved. Upon evaluation, patient was AAO x 3 but lethargic. Labs showed thrombocytopenia, low magnesium, and metabolic alkalosis. Head CT negative. CXR showed right sided pneumonia. CT ap showed pneumonia and a large retrocardiac gastric hernia. PMH: Prader Willi PSH: spine surgeries with rods FH: father's side of the family with DM, cardiac problems, HTN Meds: Rexulti, Prozac, loratadine, trazodone SH: denies smoking, alcohol, illicit drug use. Family report vaccinations up to date. PCP: Dr. Renee Review of Systems Review of Systems Systems Reviewed: All systems reviewed, normal except as documented Exam Vital Signs Temp Pulse Resp BP Pulse Ox O2 Del Method 93.1 F L 72 20 98/59 L 95 Room Air 01/23/25 14:38 01/23/25 14:38 01/23/25 14:38 01/23/25 14:38 01/23/25 14:38 01/23/25 14:38 Narrative Exam Constitutional: AAO x3 young female, lethargic but answering questions appropriately though delayed HEENT: NCAT. Vision grossly intact. Respiratory: decreased breath sounds R, no wheezing Cardiac: RRR. Abdomen: Soft, non-distended, non-tender. MSK: No pitting edema. Skin: Warm, dry, intact. Dry rash over distal PIP, skin lesion left forehead Neuro: Motor and sensation grossly intact. Psychiatric: Appropriate mood and affect. Results: Labs 01/24/25 07:36 01/24/25 05:13 Labs: Short CBC 01/23/25 Range/Units 11:25 WBC 5.3 (3.6-11.0) Thou/mm3 Hgb 10.5 L (12.0-16.0) g/dL Hct 31.5 L (36.0-46.0) % Plt Count 34 L D (140-440) Thou/mm3 BMP 01/23/25 11:25 Sodium 133 L Potassium 3.9 Chloride 95 L Carbon Dioxide 31.6 H BUN 8 L Creatinine 0.3 L Glucose 72 L Calcium 9.7 Cardiac Enzymes 01/23/25 Range/Units 11:25 Troponin I < 0.002 (0.0-0.045) ng/mL Liver Function 01/23/25 Range/Units 11:25 Total Bilirubin 0.5 (0.3-1.2) mg/dL AST 135 H (0-34) U/L ALT 254 H (10-49) U/L Alkaline Phosphatase 137 H (46-116) U/L Albumin 3.7 (3.5-5.0) gm/dL Urine 01/23/25 Range/Units 11:24 Urine Color Colorless A (Lt Yel-Yel) Urine Clarity Clear (Clear/Hazy) Urine pH 7.0 (5.0-7.0) Ur Specific [place] 1.004 (1.001-1.035) Urine Protein Negative (Neg - Trace) Urine Glucose (UA) Negative (Negative) ABG Interpretation ABG results: 01/23/25 12:05 VBG pH 7.45 VBG pCO2 49 VBG pO2 29 VBG Base Excess 8 H Quality Measures Quality Measures none Medications Home Medications and Allergies Home Medications ?Medication ?Instructions ?Recorded ?Confirmed ?Type fluoxetine 40 mg capsule (Prozac) 60 mg PO QDAY 01/03/19 01/23/25 History trazodone 100 mg tablet 100 mg PO HS 01/03/19 01/23/25 History brexpiprazole 4 mg tablet (Rexulti) 4 mg PO QDAY 01/23/25 01/23/25 History docusate sodium 100 mg capsule 100 mg PO BID 01/23/25 01/23/25 History loratadine 10 mg tablet 10 mg PO QDAY 01/23/25 01/23/25 History Allergies Allergy/AdvReac Type Severity Reaction Status Date / Time morphine Allergy Severe Rash Verified 01/23/25 10:49 Visit Medications Acetaminophen (Acetaminophen 325 Mg Tablet) 650 mg PO Q6H PRN PRN Reason: Fever >101.5 Stop: 02/22/25 15:48 Acetaminophen (Acetaminophen 325 Mg Tablet) 650 mg PO Q6H PRN PRN Reason: PAIN SCALE 1-3 (mild Stop: 02/22/25 15:48 Ceftriaxone Sodium 1,000 mg/ (Sodium Chloride) 50 mls @ 100 mls/hr IV QDAY AVERY Stop: 01/31/25 08:59 Azithromycin 500 mg/ Sodium (Chloride) 250 mls @ 250 mls/hr IV QDAY AVERY Stop: 01/31/25 08:59 Azithromycin 500 mg/ Sodium (Chloride) 250 mls @ 250 mls/hr IV X1 ONE Stop: 01/23/25 16:59 Magnesium Sulfate (Magnesium Sulfate Ivpb) 4 gm in 50 mls @ 12.5 mls/hr IV X1 ONE Stop: 01/23/25 19:55 Ondansetron HCl (Ondansetron Inj 2 Mg/Ml Inj 2 Ml) 4 mg IV Q6H PRN; Protocol PRN Reason: NAUSEA OR VOMITING Stop: 02/22/25 15:48 Discontinued Medications Sodium Chloride (Ns) 1,000 mls @ 999 mls/hr IV .Q1H1M ONE Stop: 01/23/25 12:26 Last Infusion: 01/23/25 13:56 Dose: Infused Ceftriaxone Sodium 1,000 mg/ (Sodium Chloride) 50 mls @ 100 mls/hr IV X1 ONE Stop: 01/23/25 13:42 Last Infusion: 01/23/25 15:10 Dose: Infused Magnesium Sulfate (Magnesium Sulfate Ivpb) 2 gm in 50 mls @ 25 mls/hr IV X1 ONE Stop: 01/23/25 15:40 Last Admin: 01/23/25 15:14 Dose: 25 mls/hr Assessment & Plan Plan Ms. Barb Tejeda is a 24 year old female with PMH of Prader Willi disease, distant history of seizures (not on anti-epileptic medication) who presents to the ER from a [place] [facility] [place] for headache and found to have hypothermia, hypotension, thrombocytopenia in the setting of CAP. #CAP Right sided pneumonia, seen on CXR and CT abdomen.pelvis Flu, COVID negative - Ceftriaxone, azithromycin - cough syrup prn - Blood cultures, sputum culture - Check ESR, procal - Check EBV #Hypothermia Patient present with termperature of 91. Differential include medication side effect, sepsis, hypothyroidism - Bare hugger, warming measures - Follow up with neurology if side effect of medications - Treat underlying factors #Hypotension Improved with IVF Differential include medication side effect, sepsis, hypothyroidism - Goal MAP > 60 - May consider more IVF bolus if needed #Thrombocytopenia Platelets at 31. Unclear etiology, differential include medication side effect, acute illness - Hold chemical anticoagulation - Follow up LDH, fibrinogen, peripheral blood smear - Abdominal ultrasound for splenomegaly #Normocytic anemia FOBT negative. - Iron panel ordered #Electrolyte Imbalances - Replete Mg > 2 #Elevated LFTs Differential include hepatitis, MASH, medication side effect, less likely shock liver - Lipid panel - Hepatitis panel - abdominal ultrasound #Hypoglycemia Patient scheduled to see gusset stitcher outpatient - A1c - Insulin, pro-insulin, C peptide, anti-insulin receptor auto-antibodies #Subclinical hypothyroidism - Follow up with TSH, T4 outpatient in 6 weeks, when patient is well #History of Prader Willi syndrome #Tremors On rexulti, prozac, and trazodone at home - Neurology consulted, appreciate reccs - Holding meds pending neurology #Retrocardiac gastric hernia Noted on CT. Family made aware. - Consider starting pepcid if patient symptomatic Health Maintenance Disposition: Admit to [facility] for CAP, hypothermia, hypotension, thrombocytopenia Diet and fluids: regular DVT prophylaxis: SCD - no chemical anticoagulation GI prophylaxis: none CODE STATUS: FULL I have reviewed and discussed the patient's care with my attending, Dr. Santa Zuñiga MD PGY-3 Attending Provider Attestation/Addendum I have discussed and was present for the essential components of the history, physical examination, diagnosis, and treatment plan with the resident. I agree with the patient's care as documented by the resident and amended herein by me. Alin Pratt DO. Although this document has been carefully reviewed, there may still be some phonetic and other typographical errors. These errors are purely grammatical due to imperfections in the software program and should not be construed in any way to compromise the substance of the patient's medical care during this visit.
[2025-01-23] MEDS: AZITHROMYCIN INJ 500 MG in SODIUM CHLORIDE 0.9% 250 ML 250 ML 250 MG IV (16:27)
[2025-01-23] MEDS: Magnesium Sulfate 4 GM Ivpb 4 GM/50 ML BAG IV (17:06)
[2025-01-23 17:23] LABS: Hepatitis A Antibody IgM Non Reactive (Non React); Hepatitis B Core Antibody IgM Non Reactive (Non React); Hepatitis B Surface Antigen Non Reactive (Non React); Hepatitis C Antibody Non Reactive (Non React)
[2025-01-23 17:31] LABS: D-Dimer < 250 ng/mL (<600)
[2025-01-23 17:37] LABS: Iron 77 mcg/dL (50-170)
[2025-01-23 18:04] LABS: Percent Iron Saturation 30 % (20-55); Total Iron Binding Capacity 256 mcg/dL (250-425); Unsaturated Iron Binding 179 (225-295)
[2025-01-23] MEDS: DEXTROSE 5%-NS 500 ML 50 ML IV (20:45)
[2025-01-23] MEDS: traZODone HCL 50 MG TABLET PO (22:12)
[2025-01-23] MEDS: ACETAMINOPHEN 325 MG TABLET 650 MG PO (23:52)
[2025-01-24] VITALS (7 sets, daily range): BP systolic 92–114; BP diastolic 50–78; PULSE 85–103; RESP 17–23; TEMP 36.3–37.4; O2SAT 92–97
[2025-01-24] MEDS: DEXTROSE 5%-NS 500 ML 50 ML IV (06:32)
[2025-01-24 06:58] LABS: Misc Send Out* See Sep Rpt
[2025-01-24 07:27] LABS: Alanine Aminotransferase 226 U/L (10-49); Albumin, Serum 3.1 gm/dL (3.5-5.0); Albumin/Globulin Ratio 1.5 (1.2-2.2); Alkaline Phosphatase 114 U/L (46-116); Anion Gap 8 (7-16); Aspartate Amino Transferase 116 U/L (0-34); BUN/Creatinine Ratio 20 Ratio (12-20); Bilirubin,Total 0.4 mg/dL (0.3-1.2); Blood Urea Nitrogen 10 mg/dL (9-23); Calcium 8.4 mg/dL (8.3-10.6); Calcium (Corrected) 9.1 mg/dL (8.5-10.1); Carbon Dioxide 27.7 mMol/L (20.0-31.0); Cardiac Risk Estimate 2.3 RATIO (3.7-5.6); Chloride 104 mMol/L (98-107); Cholesterol 183 mg/dL (132-200); Creatinine (Component) 0.5 mg/dL (0.6-1.3); Estimated Creatinine Clearance 103.9 mL/min (>60); Globulin 2.1 gm/dL (2.3-3.5); Glucose 59 mg/dL (74-106); HDL Cholesterol 80 mg/dL (40-60); LDH (Lactate Dehydrogenase) 409 U/L (120-246); LDL Cholesterol,Calculated 89 mg/dL (0-130); Magnesium 2.2 mg/dL (1.6-2.6); Osmolality,Calculated 276 (275-295); Phosphorous 3.2 mg/dL (2.4-5.1); Potassium 5.1 mMol/L (3.4-5.1); Sodium 140 mMol/L (136-145); Total Protein 5.2 gm/dL (5.7-8.2); Triglycerides 71 mg/dL (30-150); eGFR > 60 See Note
[2025-01-24 07:42] LABS: Fibrinogen 419 mg/dL (175-375)
[2025-01-24 08:32] LABS: Basophils % (Auto) 0 % (0-2.5); Eosinophils % (Auto) 0 % (0-10); Hematocrit 25.5 % (36.0-46.0); Immature Granulocytes % (Auto) 1 % (0-0); Immature Granulocytes Auto 0.04 Thou/mm3 (0.00-0.00); Lymphocytes # (Auto) 0.5 Thou/mm3 (1.0-4.8); Lymphocytes % (Auto) 13 % (10-50); Mean Corpuscular HGB Conc 32.9 g/dl (31.0-37.0); Mean Corpuscular Hemoglobin 28.4 pg (25.0-35.0); Mean Corpuscular Volume 86 fL (80-100); Monocytes # (Auto) 0.3 Thou/mm3 (0.0-0.8); Monocytes % (Auto) 9 % (0-12); Neutrophils % (Auto) 77 % (37-80); Nucleated Red Blood Cell # 0.03 Thou/mm3 (0.00-0.00); Nucleated Red Blood Cell % 1 /100 WBC (0); RDW Standard Deviation 50.7 fL (36.4-46.3); Red Blood Count 2.96 Miln/mm3 (4.00-5.20); White Blood Count 3.9 Thou/mm3 (3.6-11.0)
[2025-01-24] MEDS: cefTRIAXone 1,000 MG in SODIUM CHLORIDE 0.9% (Popper) 50 ML 100 MG IV (08:47)
[2025-01-24] MEDS: AZITHROMYCIN INJ 500 MG in SODIUM CHLORIDE 0.9% 250 ML 250 ML 250 MG IV (09:00)
[2025-01-24] MEDS: FLUoxetine HCL 10 MG CAPSULE 60 MG PO (09:00)
[2025-01-24 09:01] LABS: Hemoglobin 8.4 g/dL (12.0-16.0)
[2025-01-24 09:02] LABS: Platelet Count 49 Thou/mm3 (140-440)
--- NOTE | 2025-01-24 09:18 | CHAP ---
Patient expressed gratitude for visit and prayer.
[2025-01-24 09:22] LABS: Path Review Blood Smear Sent to Pathologist
[2025-01-24 09:25] LABS: Glucose Estimated Average 108 mg/dL (80-131); Hemoglobin A1C 5.4 % Hgb (4.8-6.0)
--- NOTE | 2025-01-24 11:06 | ESPR_ITS ---
<Statement entered by Brenna Resendez MD - 01/26/25 13:24> I reviewed above note and agree with findings and plans. I have also personally examined the patient with medicine team and went over assessment and plan with medical team including network intern and resident physician. Documentation for date of: 01/24/25 Subjective Subjective Interval history: No overnight events. Patient seen and examined at bedside, resting comfortably. Denies chest pain, shortness of breath, fevers, chills, lightheadedness, fatigue, headache. Endorses cough, nonproductive. Continue current antibiotic management. Follow-up on blood cultures, will likely discharge if negative. Exam Vital Signs Temp Pulse Resp BP Pulse Ox O2 Del Method 98.0 F 86 20 92/51 L 93 L Room Air 01/24/25 07:40 01/24/25 07:40 01/24/25 07:40 01/24/25 07:40 01/24/25 07:40 01/24/25 07:40 Narrative Exam PE: Gen: Well-developed and well-nourished. HEENT: NCAT, PERRLA, EOMI, MMM, anicteric conjunctivae. Bilateral inferomedial bruises. Large scab on forehead. CVS: normal S1 and S2. RRR. No M/R/G. Resp: CTA B/L. No rhonchi, rales, crackles or wheezing. Abd: soft, non-tender, non-distended. MSK: Good ROM in BUE & BLE. No edema or rash. Multiple scabs, scars, wounds on bilateral hands. Neuro: CN II-XII grossly intact. Strength 5/5 in BUE & BLE. Alert and oriented x3. Psych: appropriate mood and affect. Objective Labs 01/24/25 07:36 01/24/25 05:13 Labs: Laboratory Results - last 24 hr 01/23/25 01/23/25 01/23/25 11:24 11:25 12:05 WBC 5.3 RBC 3.74 L Hgb 10.5 L Hct 31.5 L MCV 84 MCH 28.1 MCHC 33.3 RDW Std Deviation 47.1 H Plt Count 34 L D Neut % (Auto) 85 H Lymph % (Auto) 7 L [place] % (Auto) 6 Eos % (Auto) 0 Baso % (Auto) 0 Neut # (Auto) 4.5 Lymph # (Auto) 0.4 L [place] # (Auto) 0.3 Eos # (Auto) 0.0 Baso # (Auto) 0.0 Immature Gran # (Auto) 0.03 H Absolute Nucleated RBC 0.02 H Immature Gran % 1 H Nucleated RBC % 0 Smear Path Review ESR 66 H PT 10.5 INR 1.0 Fibrinogen D-Dimer < 250 VBG pH 7.45 VBG pCO2 49 VBG pO2 29 VBG O2 Sat (Braden) 59 L VBG Base Excess 8 H Sodium 133 L Potassium 3.9 Chloride 95 L Carbon Dioxide 31.6 H Anion Gap 6 L BUN 8 L Creatinine 0.3 L Estim Creat Clear Calc 173.2 eGFR > 60 BUN/Creatinine Ratio 27 H Glucose [address] Glu mg/dL Hemoglobin A1c Calculated Osmolality 263 L Lactic Acid 0.5 Calcium 9.7 Corrected Calcium 9.9 Phosphorus Magnesium 1.4 L Iron 77 TIBC 256 Iron Saturation 30 Unsat Iron Binding 179 L Total Bilirubin 0.5 AST 135 H ALT 254 H Alkaline Phosphatase 137 H Ammonia < 10 L Lactate Dehydrogenase Troponin I < 0.002 B-Natriuretic Peptide 112 H Total Protein 6.2 Albumin 3.7 Globulin 2.5 Albumin/Globulin Ratio 1.5 Triglycerides Cholesterol LDL Cholesterol, Calc HDL Cholesterol Cholesterol/HDL Ratio Procalcitonin 0.08 0.10 TSH 18.71 H D Thyroxine (T4) 9.2 Free T3 pg/dL 2.4 HCG, Qual Negative Ur Collection Type Clean Catch Urine Color Colorless A Urine Clarity Clear Urine pH 7.0 Ur Specific [place] 1.004 Urine Protein Negative Urine Glucose (UA) Negative Urine Ketones Negative Urine Blood Negative Urine Nitrite Negative Urine Bilirubin Negative Urine Urobilinogen (Auto) Negative Ur Leukocyte Esterase Negative Urine RBC < 1 Urine WBC < 1 Ur Squamous Epith Cells 0 Urine Bacteria None Urine Opiates Screen Negative Urine Fentanyl Screen Negative Ur Barbiturates Screen Negative U Amphetamin/Meth Scrn Negative U Benzodiazepines Scrn Negative U Cocaine Metab Screen Negative U Marijuana (THC) Screen Negative Ethyl Alcohol < 3.0 Hepatitis A IgM Ab Non Reactive Hep Bs Antigen Non Reactive Hep B Core IgM Ab Non Reactive Hepatitis C Antibody Non Reactive Misc Test Result Platelets confirmed 01/24/25 01/24/25 05:13 07:36 WBC 3.9 RBC 2.96 L Hgb 8.4 L D Hct 25.5 L MCV 86 MCH 28.4 MCHC 32.9 RDW Std Deviation 50.7 H Plt Count 49 L D Neut % (Auto) 77 Lymph % (Auto) 13 [place] % (Auto) 9 Eos % (Auto) 0 Baso % (Auto) 0 Neut # (Auto) 3.0 Lymph # (Auto) 0.5 L [place] # (Auto) 0.3 Eos # (Auto) 0.0 Baso # (Auto) 0.0 Immature Gran # (Auto) 0.04 H Absolute Nucleated RBC 0.03 H Immature Gran % 1 H Nucleated RBC % 1 H Smear Path Review Sent to Pathologist ESR PT INR Fibrinogen 419 H D-Dimer VBG pH VBG pCO2 VBG pO2 VBG O2 Sat (Braden) VBG Base Excess Sodium 140 Potassium 5.1 D Chloride 104 Carbon Dioxide 27.7 Anion Gap 8 BUN 10 Creatinine 0.5 L Estim Creat Clear Calc 103.9 eGFR > 60 BUN/Creatinine Ratio [address]ucose [address] Glu mg/dL 108 Hemoglobin A1c 5.4 Calculated Osmolality 276 Lactic Acid Calcium 8.4 Corrected Calcium 9.1 Phosphorus 3.2 Magnesium 2.2 Iron TIBC Iron Saturation Unsat Iron Binding Total Bilirubin 0.4 AST 116 H ALT 226 H Alkaline Phosphatase 114 D Ammonia Lactate Dehydrogenase 409 H Troponin I B-Natriuretic Peptide Total Protein 5.2 L Albumin 3.1 L D Globulin 2.1 L Albumin/Globulin Ratio 1.5 Triglycerides 71 Cholesterol 183 LDL Cholesterol, Calc 89 HDL Cholesterol 80 H Cholesterol/HDL Ratio 2.3 L Procalcitonin TSH Thyroxine (T4) Free T3 pg/dL HCG, Qual Ur Collection Type Urine Color Urine Clarity Urine pH Ur Specific [place] Urine Protein Urine Glucose (UA) Urine Ketones Urine Blood Urine Nitrite Urine Bilirubin Urine Urobilinogen (Auto) Ur Leukocyte Esterase Urine RBC Urine WBC Ur Squamous Epith Cells Urine Bacteria Urine Opiates Screen Urine Fentanyl Screen Ur Barbiturates Screen U Amphetamin/Meth Scrn U Benzodiazepines Scrn U Cocaine Metab Screen U Marijuana (THC) Screen Ethyl Alcohol Hepatitis A IgM Ab Hep Bs Antigen Hep B Core IgM Ab Hepatitis C Antibody Misc Test Result ABG Interpretation ABG results: 01/23/25 12:05 VBG pH 7.45 VBG pCO2 49 VBG pO2 29 VBG Base Excess 8 H Quality Measures Quality Measures VTE prophylaxis Assessment & Plan Assessment Current Active Medications: Generic Name Dose Route Start Last Admin Trade Name Freq PRN Reason Stop Dose Admin Acetaminophen 650 mg 01/23/25 15:49 Acetaminophen 325 Mg Tablet PO 02/22/25 15:48 Q6H PRN Fever >101.5 Acetaminophen 650 mg 01/23/25 15:49 01/23/25 23:52 Acetaminophen 325 Mg Tablet PO 02/22/25 15:48 650 mg Q6H PRN Administration PAIN SCALE 1-3 (mild Dextrose 50 ml 01/23/25 16:56 Dextrose 50%-Water Inj 50 Ml Syringe IV 02/22/25 16:55 Q15MIN PRN BG <50 OR BG <70 & pt unresponsive Fluoxetine HCl 60 mg 01/24/25 09:00 01/24/25 09:00 Fluoxetine Hcl 10 Mg Capsule PO 02/23/25 08:59 60 mg QDAY AVERY Administration Glucagon 1 mg 01/23/25 16:56 Glucagon Inj 1 Mg Vial IM Q15MIN PRN BG <70, and no IV access Ceftriaxone Sodium 1,000 mg/ 50 mls @ 100 mls/hr 01/24/25 09:00 01/24/25 08:47 Sodium Chloride IV 01/31/25 08:59 100 mls/hr QDAY AVERY Administration Azithromycin 500 mg/ Sodium 250 mls @ 250 mls/hr 01/24/25 09:00 01/24/25 09:00 Chloride IV 01/31/25 08:59 250 mls/hr QDAY AVERY Administration Dextrose/Sodium Chloride 500 mls @ 50 mls/hr 01/23/25 17:00 01/24/25 06:32 D5-Ns IV 01/24/25 16:59 50 mls/hr .Q10H AVERY Administration Ondansetron HCl 4 mg 01/23/25 15:49 Ondansetron Inj 2 Mg/Ml Inj 2 Ml IV 02/22/25 15:48 Q6H PRN NAUSEA OR VOMITING Protocol Trazodone HCl 50 mg 01/23/25 21:45 01/23/25 22:12 Trazodone Hcl 50 Mg Tablet PO 02/22/25 21:44 50 mg HS AVERY Administration Plan 24 year old female with PMH of Prader Willi disease, distant history of seizures (not on anti-epileptic medication) who presents [facility] the ER from [facility] for headache and found to have hypothermia, hypotension, thrombocytopenia in the setting of CAP. #CAP Right sided pneumonia, seen on CXR and CT abdomen/pelvis. Flu, COVID negative. Patient reporting symptomatic cough, denies shortness of breath, lungs clear to auscultation. Pro-Segun negative. Blood cultures pending. Likely able to discharge if blood cultures negative on oral antibiotics. -Ceftriaxone, azithromycin -cough syrup prn -Blood cultures, sputum culture -Check EBV #Hypothermia Patient present with termperature of 91. Differential include medication side effect, sepsis, hypothyroidism Patient measures improved, no other requiring Veronica hugger. -Follow up with neurology if side effect of medications -Treat underlying factors #Hypotension Improved with IVF Differential include medication side effect, sepsis, hypothyroidism Lactic acid WNL, patient possibly has low blood pressure at baseline. -Goal MAP > 60 -May consider more IVF bolus if needed #Thrombocytopenia Platelets at 31. Unclear etiology, differential include medication side effect, acute illness Abdominal ultrasound did not show splenomegaly. LDH and fibrinogen both elevated. Peripheral blood smear pending -Hold chemical anticoagulation -Follow up peripheral blood smear -Monitor daily #Normocytic anemia FOBT negative. Iron panel ordered, unremarkable. -Monitor hemoglobin #Electrolyte Imbalances -Replete Mg > 2 #Elevated LFTs Differential include hepatitis, MASH, medication side effect, less likely shock liver Abdominal ultrasound unremarkable. Lipid panel unremarkable. Hepatitis panel nonreactive. LFTs downtrending. -Monitor #Hypoglycemia Patient scheduled to see ad operations specialist outpatient. A1c 5.4% as of 01/24/2025. -Insulin, pro-insulin, C peptide, anti-insulin receptor auto-antibodies -High carb diet -Glucose monitoring -Hypoglycemia protocol #Subclinical hypothyroidism TSH elevated 18.7. Free T4 9.2. -Follow up with TSH, T4 outpatient in 6 weeks, when patient is well #History of Prader Willi syndrome #Tremors On rexulti, prozac, and trazodone at home. Inpatient medications as neurology recommendations. -Holding Rexulti -Continuing Prozac at home dose -Continue trazodone 50 mg daily -Neurology consulted, appreciate recs #Retrocardiac gastric hernia Noted on CT. Family made aware. -Consider starting pepcid if patient symptomatic DVT prophylaxis: SCDs GI prophylaxis: None Diet: High carb diet Lines: Peripheral IV Code status: Full code Plan of care discussed with attending Dr. Resendez. Naseem Dougherty MD PGY-1
--- NOTE | 2025-01-24 15:33 | PC.NURSE ---
TC to MD team. Caregivers state that earlier when the MD came to speak with them that pt was on the cammoder and MD stated they would return. Has not returned yet, nurse called MD team with no answer
--- NOTE | 2025-01-24 16:02 | PC.NURSE ---
Called Dr. Resendez, Dr. Zuñiga, Dr. Roque and Dr. Quan. No answer at this time and vm stating mailbox is full.
--- NOTE | 2025-01-24 16:20 | PC.NURSE ---
Walked to hospitalists offices and informed Dr. Resendez that pt has family in the room and are requesting to speak with him. He stated I will be over there as soon as I finish this admission . Caregiver notified doctor will come in and speak w/them as soon as he's available.
[2025-01-24 17:16] LABS: Slide Review Platelets confirmed
[2025-01-24] MEDS: traZODone HCL 50 MG TABLET PO (20:44)
--- NOTE | 2025-01-24 22:29 | PD.NEUROPROG ---
Documentation for date of: 01/24/25 Subjective Subjective Interval history: Patient was seen in [facility] today while she was eating lunch. Continues to have intention tremors in both upper extremities and ataxic. Not able to sleep last night as trazodone dose was reduced. Exam - Neurology Vital Signs Temp Pulse Resp BP Pulse Ox O2 Del Method O2 Flow Rate 99.1 F 94 20 114/78 96 Room Air 2 01/24/25 20:00 01/24/25 20:00 01/24/25 20:00 01/24/25 20:00 01/24/25 20:00 01/24/25 20:00 01/24/25 11:49 Narrative Exam GENERAL APPEARANCE: Well hydrated, well-nourished in no acute distress. HEENT: Normocephalic, atraumatic, extraocular movements intact. Pupils: Equal reacting to light and accommodation NECK: Supple, no JVD or bruits. CARDIOVASULAR: Heart: S1, S2 heard, regular without S3-S4 or murmur no rubs or gallops. LUNGS/CHEST: Clear to auscultation bilaterally. No rails, rhonchi, or wheezing. Normal inspection. ABDOMEN: Soft, nontender, with normal bowel sounds. No pulsatile masses. No rebound, rigidity, or guarding. Normal inspection and palpation. EXTREMITIES: Normal inspection and palpation. No edema, clubbing or cyanosis. SKIN: Warm and dry without rashes. Normal inspection. MUSCULOSKELETAL: No cervical, thoracic, lumbar or midline bony tenderness. Normal inspection. NEURO: Alert, awake and oriented x2. Cranial nerves: II through XII grossly intact. Speech and language: Normal with no dysarthria or dysphasia. Motor system: Tone and bulk: Normal: Strength: 5 out of 5 in all 4 extremities; No pronator drift noted. Deep tendon reflexes: 1+ bilaterally symmetrical. Plantar reflex: Downgoing bilaterally. Sensory system: Intact to all modalities of sensation bilaterally. Coordination: Intact to [id number] and [id number] test bilaterally. No ataxia, no dysmetria, or dysdiadochokinesia noted. intention tremors noted. Gait: Walked with a walker in the hallway. No signs of meningeal irritation noted. PSYCHIATRIC: Normal mood and affect. Objective Labs 01/24/25 07:36 01/24/25 05:13 Labs: Laboratory Results - last 24 hr 01/24/25 01/24/25 05:13 07:36 WBC 3.9 RBC 2.96 L Hgb 8.4 L D Hct 25.5 L MCV 86 MCH 28.4 MCHC 32.9 RDW Std Deviation 50.7 H Plt Count 49 L D Neut % (Auto) 77 Lymph % (Auto) 13 [place] % (Auto) 9 Eos % (Auto) 0 Baso % (Auto) 0 Neut # (Auto) 3.0 Lymph # (Auto) 0.5 L [place] # (Auto) 0.3 Eos # (Auto) 0.0 Baso # (Auto) 0.0 Immature Gran # (Auto) 0.04 H Absolute Nucleated RBC 0.03 H Immature Gran % 1 H Nucleated RBC % 1 H Smear Path Review Sent to Pathologist Fibrinogen 419 H Sodium 140 Potassium 5.1 D Chloride 104 Carbon Dioxide 27.7 Anion Gap 8 BUN 10 Creatinine 0.5 L Estim Creat Clear Calc 103.9 eGFR > 60 BUN/Creatinine Ratio 20 [address]ucose [address] Glu mg/dL 108 Hemoglobin A1c 5.4 Calculated Osmolality 276 Calcium 8.4 Corrected Calcium 9.1 Phosphorus 3.2 Magnesium 2.2 Total Bilirubin 0.4 AST 116 H ALT 226 H Alkaline Phosphatase 114 D Lactate Dehydrogenase 409 H Total Protein 5.2 L Albumin 3.1 L D Globulin 2.1 L Albumin/Globulin Ratio 1.5 Triglycerides 71 Cholesterol 183 LDL Cholesterol, Calc 89 HDL Cholesterol 80 H Cholesterol/HDL Ratio 2.3 L Misc Test Result Platelets confirmed ABG Interpretation ABG results: 01/23/25 12:05 VBG pH 7.45 VBG pCO2 49 VBG pO2 29 VBG Base Excess 8 H Assessment & Plan Additional Assessment & Plan Additional Plan: 24 year old female with PMH of Prader Willi syndrome, remote history of seizures (not on AED) presented with headache and was found to have pneumonia. hypothermia, hypotension, thrombocytopenia. Neurology was consulted to evaluate for tremors and ataxia. #History of Prader Willi syndrome #Tremors: likely drug induced On rexulti, prozac, and trazodone at home. Recommendation: Hold Rexulti, continue Prozac 60 mg and trazodone 100 mg as before as she could not sleep at low doses. Cannot add Betablocker as she is hypotensive already. #CAP Right sided pneumonia, seen on CXR and CT abdomen/pelvis. Flu, COVID negative. -Ceftriaxone, azithromycin #Hypothermia #Hypotension #Thrombocytopenia #Normocytic anemia #Electrolyte Imbalances #Elevated LFTs #Hypoglycemia: scheduled to see food and drug inspector outpatient. A1c 5.4% as of 01/24/2025. -Insulin, pro-insulin, C peptide, anti-insulin receptor auto-antibodies ordered by primary team. #Subclinical hypothyroidism TSH elevated 18.7. Free T4 9.2. -Follow up with Endo #Retrocardiac gastric hernia Noted on CT. Family made aware. -Consider starting pepcid if patient symptomatic
--- NOTE | 2025-01-24 22:29 | PD.NEUROCONS ---
History of Present Illness Data of Consult Requesting Physician: Brenna Resendez MD Primary Care Provider: John Millard MD Consult Narrative cc:: cc: Brenna Resendez MD Meds Home Medications and Allergies Home Medications ?Medication ?Instructions ?Recorded ?Confirmed ?Type fluoxetine 40 mg capsule (Prozac) 60 mg PO QDAY 01/03/19 01/23/25 History trazodone 100 mg tablet 100 mg PO HS 01/03/19 01/23/25 History brexpiprazole 4 mg tablet (Rexulti) 4 mg PO QDAY 01/23/25 01/23/25 History docusate sodium 100 mg capsule 100 mg PO BID 01/23/25 01/23/25 History loratadine 10 mg tablet 10 mg PO QDAY 01/23/25 01/23/25 History Allergies Allergy/AdvReac Type Severity Reaction Status Date / Time morphine Allergy Severe Rash Verified 01/23/25 10:49 Exam - Neurology Vital Signs Temp Pulse Resp BP Pulse Ox O2 Del Method O2 Flow Rate 99.1 F 94 20 114/78 96 Room Air 2 01/24/25 20:00 01/24/25 20:00 01/24/25 20:00 01/24/25 20:00 01/24/25 20:00 01/24/25 20:00 01/24/25 11:49 Results Labs 01/24/25 07:36 01/24/25 05:13 Labs: Short CBC 01/24/25 Range/Units 07:36 WBC 3.9 (3.6-11.0) Thou/mm3 Hgb 8.4 L D (12.0-16.0) g/dL Hct 25.5 L (36.0-46.0) % Plt Count 49 L D (140-440) Thou/mm3 BMP 01/24/25 05:13 Sodium 140 Potassium 5.1 D Chloride 104 Carbon Dioxide 27.7 BUN 10 Creatinine 0.5 L Glucose 59 L Calcium 8.4 Liver Function 01/24/25 Range/Units 05:13 Total Bilirubin 0.4 (0.3-1.2) mg/dL AST 116 H (0-34) U/L ALT 226 H (10-49) U/L Alkaline Phosphatase 114 D (46-116) U/L Albumin 3.1 L D (3.5-5.0) gm/dL ABG Interpretation ABG results: 01/23/25 12:05 VBG pH 7.45 VBG pCO2 49 VBG pO2 29 VBG Base Excess 8 H
[2025-01-25] VITALS: PULSE 85
[2025-01-25 04:00] VITALS: BP 123/78; PULSE 87; RESP 18; TEMP 37.2; O2SAT 94
[2025-01-25 05:42] LABS: Misc Send Out* See Sep Rpt
[2025-01-25 06:04] LABS: Basophils % (Auto) 0 % (0-2.5); Eosinophils % (Auto) 0 % (0-10); Hematocrit 28.2 % (36.0-46.0); Hemoglobin 9.3 g/dL (12.0-16.0); Immature Granulocytes % (Auto) 1 % (0-0); Lymphocytes % (Auto) 13 % (10-50); Mean Corpuscular Volume 85 fL (80-100); Monocytes # (Auto) 0.7 Thou/mm3 (0.0-0.8); Monocytes % (Auto) 9 % (0-12); Neutrophils # (Auto) 5.9 Thou/mm3 (1.8-7.7); Neutrophils % (Auto) 77 % (37-80); Nucleated Red Blood Cell % 0 /100 WBC (0); Platelet Count 75 Thou/mm3 (140-440); RDW Standard Deviation 51.4 fL (36.4-46.3); Red Blood Count 3.32 Miln/mm3 (4.00-5.20); White Blood Count 7.7 Thou/mm3 (3.6-11.0)
[2025-01-25 06:20] LABS: Slide Review Platelets confirmed
[2025-01-25 06:28] LABS: Alanine Aminotransferase 209 U/L (10-49); Albumin, Serum 3.8 gm/dL (3.5-5.0); Albumin/Globulin Ratio 1.5 (1.2-2.2); Alkaline Phosphatase 126 U/L (46-116); Anion Gap 8 (7-16); Aspartate Amino Transferase 98 U/L (0-34); BUN/Creatinine Ratio 20 Ratio (12-20); Bilirubin,Total 0.5 mg/dL (0.3-1.2); Blood Urea Nitrogen 10 mg/dL (9-23); Calcium 9.6 mg/dL (8.3-10.6); Calcium (Corrected) 9.8 mg/dL (8.5-10.1); Carbon Dioxide 28.7 mMol/L (20.0-31.0); Chloride 101 mMol/L (98-107); Creatinine (Component) 0.5 mg/dL (0.6-1.3); Estimated Creatinine Clearance 103.9 mL/min (>60); Globulin 2.6 gm/dL (2.3-3.5); Glucose 65 mg/dL (74-106); Magnesium 1.8 mg/dL (1.6-2.6); Osmolality,Calculated 272 (275-295); Phosphorous 3.9 mg/dL (2.4-5.1); Potassium 4.6 mMol/L (3.4-5.1); Sodium 138 mMol/L (136-145); Total Protein 6.4 gm/dL (5.7-8.2); eGFR > 60 See Note
[2025-01-25 08:00] VITALS: BP 96/58; PULSE 82; PULSE 91; RESP 19; TEMP 36.7; O2SAT 96
[2025-01-25] MEDS: FLUoxetine HCL 10 MG CAPSULE 60 MG PO (08:37)
[2025-01-25] MEDS: cefTRIAXone 1,000 MG in SODIUM CHLORIDE 0.9% (Popper) 50 ML 100 MG IV (08:57)
[2025-01-25] MEDS: AZITHROMYCIN INJ 500 MG in SODIUM CHLORIDE 0.9% 250 ML 250 ML 250 MG IV (09:59)
[2025-01-25] MEDS: Magnesium Sulfate 2 GM Ivpb 2 GM/50 ML BAG IV (10:13)
--- NOTE | 2025-01-25 11:13 | ESDS_ITS ---
<Statement entered by Brenna Resendez MD - 01/30/25 04:06> I reviewed above note and agree with findings and plans. I have also personally examined the patient with medicine team and went over assessment and plan with medical team including manager intern and resident physician. Planned Discharge Date 01/25/25 DS: Providers Provider Date of admission: 01/23/25 15:49 Primary care physician: John Millard MD Admitting Provider: Rodrigo Pratt DO Attending Provider on Admission: Brenna Resendez MD Consults: 01/23/25 15:51 Consult to Neurology / Tele-Neurology Routine Comment: Praailyn, med hypothermia, thrombocytopenia? Consulting Provider: Nolberto Moon Attending Provider on DC: Brenna Resendez MD Discharging Provider: Brenna Resendez MD DS: Diagnosis Problem List Completed Was Problem List Reviewed/Reconciled?: Yes Hospital Course Hospital Course Hospital course: This 24-year-old female with a history of Prader-Willi syndrome and remote seizures was admitted from a [place] [facility] due to headache, hypothermia, hypotension, and thrombocytopenia in the setting of community-acquired pneumonia. She reported a cough but denied shortness of breath, and lung auscultation was clear. Imaging confirmed right-sided pneumonia, and she was treated with ceftriaxone and azithromycin. Flu and COVID-19 tests were negative, and blood cultures showed no growth.EBV results are pending. Hypothermia was managed with a Veronica Hugger, and hypotension improved with fluids. Thrombocytopenia prompted holding anticoagulation and ordering a peripheral blood smear. During hospitalization, she had elevated liver function tests (LFTs), but hepatitis panel, lipid panel, and abdominal ultrasound were unremarkable. She experienced a hypoglycemic episode, with an A1c of 5.4%. Further endocrine workup, including insulin, proinsulin, C-peptide, and NT insulin receptor autoantibodies, was ordered. Subclinical hypothyroidism was noted, requiring follow-up. Neurology recommended discontinuing Rexulti and continuing Prozac 60 mg daily and trazodone [address] imaging revealed a retrocardiac gastric hernia, with outpatient surgical follow-up recommended for possible repair and Pepcid if symptomatic. She was discharged to her [place] [facility] in stable condition. #Problem list: #Community-acquired pneumonia #Hypothermia #Hypotension #Thrombocytopenia #Normocytic anemia #Electrolyte imbalance #Elevated LFTs #Hypoglycemia #Subclinical hypothyroidism #History of Prader Willi syndrome #Tremors #Retrocardiac gastric hernia DC instructions: Take azithromycin 500 mg for 3 days to complete course, your blood cx are negative Continue taking fluoxetine 60 mg and trazodone 50 mg HS your rexulti has been stopped by neurologist Cont taking other home meds F/U with Gen Surgery as outpatient for retrocardiac gastric hernia F/u with labs for insulin antibodies and c-peptide F/U with PCP as outpatient Patient was seen and discussed with attending physician, Dr.Obad Dr. Meme MD, PGY 2 Time Spent with Patient Time attestation: Total time spent providing and/or coordinating discharge services: Exam Vital Signs Temp Pulse Resp BP Pulse Ox O2 Del Method O2 Flow Rate 98.0 F 91 19 96/58 L 96 Room Air 2 01/25/25 08:00 01/25/25 08:00 01/25/25 08:00 01/25/25 08:00 01/25/25 08:00 01/25/25 08:00 01/24/25 11:49 Narrative Exam Gen: Well-developed and well-nourished. HEENT: NCAT, PERRLA, EOMI, MMM, anicteric conjunctivae. Bilateral inferomedial bruises. Large scab on forehead. CVS: normal S1 and S2. RRR. No M/R/G. Resp: CTA B/L. No rhonchi, rales, crackles or wheezing. Abd: soft, non-tender, non-distended. MSK: Good ROM in BUE & BLE. No edema or rash. Multiple scabs, scars, wounds on bilateral hands. Neuro: CN II-XII grossly intact. Strength 5/5 in BUE & BLE. Alert and oriented x3. Psych: appropriate mood and affect. Discharge Plan Plan Patient Disposition: HOME (Self Care) Patient condition on transfer: Stable Care Plan Goals: Take azithromycin 500 mg for 3 days to complete course, your blood cx are negative Continue taking fluoxetine 60 mg and trazodone 50 mg HS your rexulti has been stopped by neurologist Cont taking other home meds F/U with Gen Surgery as outpatient for retrocardiac gastric hernia F/u with labs for insulin antibodies and c-peptide F/U with PCP as outpatient Prescriptions/Referrals Prescriptions/Med Rec: New trazodone 50 mg Tablet 50 mg PO HS Qty: 30 0RF fluoxetine 60 mg tablet 60 mg PO QDAY Qty: 30 0RF azithromycin 500 mg tablet 500 mg PO QDAY 3 Days Qty: 3 0RF Gvoke 1 mg/0.2 mL solution 1 mg subcut Q20M PRN (Reason: hypoglycemia) Qty: 0.2 0RF Rx Instructions: until target blood sugar attained Continued docusate sodium 100 mg capsule 100 mg PO BID loratadine 10 mg tablet 10 mg PO QDAY Discontinued fluoxetine [Prozac] 40 mg Capsule 60 mg PO QDAY trazodone 100 mg Tablet 100 mg PO HS Rexulti 4 mg tablet 4 mg PO QDAY Referrals: John Millard MD [Primary Care Provider] - oNlberto Moon MD [Physician] - Patient/Caregiver Discharge Instructions Discharge Activity: activity as tolerated Education Materials: Preventing Pneumonia, Treating Pneumonia Print Language: Amharic Stand Alone Forms: Cony Award Info., Patient Portal Info Letter Discharge Order Discharge Orders: Discharge (Routine); Ordered 01/25/25 Ordered By: Moises Valentine Quality Discharge Quality Measures VTE prophylaxis (SCDs)
[2025-01-25 12:00] VITALS: BP 109/47; PULSE 88; PULSE 90; RESP 19; TEMP 36.3; O2SAT 97
[2025-01-28 15:33] LABS: EBV VCA Ab (IgM) <36.00 U/mL
[2025-01-29 06:51] LABS: C-Peptide* 0.86 ng/mL (0.80-3.85); EBV Ab Interpretation PAST; Insulin* 2.1 uIU/mL (< OR = 18.4)
== END 2025-01-25 13:05 | disposition home or self-care (01) | DRG 194 ==
LOC: SERX 15:40 → SERHOLD 16:02 → S3SX 17:39
PROVIDERS: Nurse Practitioner Family; Nurse Practitioner Primary Care; Student in an Organized Health Care Education/Training Program; Admitting Provider Student in an Organized Health Care Education/Training Program; Emergency Provider Emergency Medicine; PCP Family Medicine; Visit Provider Internal Medicine
DX: J18.9 Pneumonia, unspecified organism (principal); E87.3 Alkalosis; Q87.11 Prader-Willi syndrome; F79 Unspecified intellectual disabilities; T68.XXXA Hypothermia, initial encounter; I95.9 Hypotension, unspecified; D69.59 Other secondary thrombocytopenia; D64.9 Anemia, unspecified; I10 Essential (primary) hypertension; L98.9 Disorder of the skin and subcutaneous tissue, unspecified; R27.0 Ataxia, unspecified; R16.1 Splenomegaly, not elsewhere classified; E16.2 Hypoglycemia, unspecified; E03.8 Other specified hypothyroidism; K45.8 Other specified abdominal hernia without obstruction or gangrene; Z88.5 Allergy status to narcotic agent; Z11.52 Encounter for screening for COVID-19; Z79.899 Other long term (current) drug therapy
CPT/HCPCS: 36415; 70450; 71045; 74177; 76700; 80053; 80061; 80074; 80307; 80320; 81001; 82140; 82803; 83036; 83525; 83540; 83550; 83605; 83615; 83735; 83880; 84100; 84145; 84436; 84439; 84443; 84481; 84484; 84681; 84703; 85025; 85379; 85384; 85610; 85652; 86664; 86665; 87040; 87086; 87400; 87811; 93005; 93225; 96361; 96365; 96366; 96367; 99285; A4649; J0456; J0696; J3475; J7030; J7042; J7050; Q9967; A9270; G0480

== ENCOUNTER 2025-02-07 10:50 | Emergency (ER) | payer MEDICARE, MEDICAID, SELFPAY ==
[2025-02-07 10:59] VITALS: BP 93/50; PULSE 55; RESP 18; O2SAT 98
--- NOTE | 2025-02-07 11:00 | PC.NURSE ---
BS 65, PROVIDER NOTIFIED. JUICE AND SANDWICH GIVEN.
--- NOTE | 2025-02-07 11:06 | PD.EDRME ---
Rapid Medical Screening Exam RME Arrival date/time: 02/07/25 10:50 CC: Hypoglycemia lethargy HPI patient referred to the ER by [facility]. The patient has Prader-Willi syndrome, is concerned by PCP for insulinoma. Currently patient is awake alert and with no specific complaints initial blood sugar at 65. Chief Complaint: Recheck/Abnormal Lab/Rx Vital signs: Vital Signs Pulse Rate 55 L 02/07/25 10:59 Respiratory Rate 18 02/07/25 10:59 Blood Pressure 93/50 L 02/07/25 10:59 Pulse Oximetry (%) 98 02/07/25 10:59 Oxygen Delivery Method Room Air 02/07/25 10:59
--- NOTE | 2025-02-07 11:11 | XR_ITS ---
EXAMINATION: US abdomen limited ORDERING PROVIDER: Jaspal Hodges NP HISTORY: check for pancreatic mass TECHNIQUE: Multiplanar still ultrasonography of the right upper quadrant was performed using grayscale imaging, supplemented by color and spectral Doppler as needed. COMPARISON: 01/23/2025, ultrasound abdomen. 01/23/2025, CT abdomen pelvis. FINDINGS: Liver: No lesion identified. Gallbladder: Within normal limits. Biliary system: No biliary ductal dilatation. Common bile duct: 0.2 cm. Pancreatic head: No pancreatic head mass identified. Vascular: Normal hepatopetal flow in the portal vein. IVC patent. Other: No ascites or mass. IMPRESSION: Unremarkable right upper quadrant ultrasound. If further clinical concern for pancreatic mass, recommend routine outpatient MR pancreas protocol. Of note, on recent CT, the pancreatic body and tail is contained within a type IV hiatal hernia.
[2025-02-07 11:20] VITALS: TEMP 33.8
--- NOTE | 2025-02-07 11:42 | PC.NURSE ---
Pt arrived with jordan
--- NOTE | 2025-02-07 11:43 | PC.NURSE ---
Pt arrived with caregiver after a [facility] visit and caregiver states she was told to bring her to ER. Pt is GCS 15 in NAD pt had a hx of Prader-Willi syndrome and primary amenorrhea. Per paperwork from [facility] TSH 11.2. at bedside to assess.
--- NOTE | 2025-02-07 11:45 | PD.EDRECHK ---
ED Recheck Abnl Lab Rx-RME/HPI General Chief Complaint: Recheck/Abnormal Lab/Rx Stated Complaint: LETHARGY, LOW BS, LOW BP Time Seen by Provider: 02/07/25 11:41 Arrival date/time: 02/07/25 10:50 Limitations: no limitations RME / HPI RME / HPI narrative: 02/07/25 10:50 CC: Hypoglycemia lethargy HPI patient referred to the ER by [facility]. The patient has Prader-Willi syndrome, is concerned by PCP for insulinoma. Currently patient is awake alert and with no specific complaints initial blood sugar at 65. DR. COLINDRES MAIN ED EVALUATION: 24 year old female with history of Prader-Willi syndrome, episodes of hypoglycemia, remote seizures, presents to the ED sent by PCP at [facility] for evaluation of abnormal labs today. Caregiver reports the patient was following up after admission 01/23/25 through 01/25/2025. Today labs were significant for elevated TSH at 11.2 uIU/mL, elevated C-peptide at 6.9 ng/mL, and FSBS 75. Was sent here for further evaluation with differential including insulinoma. Caregiver at bedside reports the patient has been referred to see an Eye Technician and has an appointment scheduled 02/22/2025. While in the ED patient reports she hasn't eaten much and during out evaluation he is eating a sandwich. No other complaints. The patient was also sent with concerns of hypotension, hypoglyxemia, lethargy, bradycardia. Patient's blood pressure in clinic was 93/62, HR 58, RR 20, temp 98.1F. Related Data Home Medications ?Medication ?Instructions ?Recorded ?Confirmed docusate sodium 100 mg capsule 100 mg PO BID 01/23/25 01/23/25 loratadine 10 mg tablet 10 mg PO QDAY 01/23/25 01/23/25 Previous Rx's ?Medication ?Instructions ?Recorded fluoxetine 60 mg tablet 60 mg PO QDAY #30 tabs 01/25/25 glucagon 1 mg/0.2 mL subcutaneous 1 mg (0.2 mL) subcut Q20M PRN 01/25/25 solution (Gvoke) hypoglycemia #0.2 mL trazodone 50 mg tablet 50 mg PO HS #30 tabs 01/25/25 levothyroxine 25 mcg tablet 25 mcg PO QDAY #14 tabs 02/07/25 (Synthroid) Allergies Allergy/AdvReac Type Severity Reaction Status Date / Time morphine Allergy Severe Rash Verified 01/23/25 10:49 Review of Systems Review of Systems Narrative Review of Systems: GEN: No fever, no chills, no weight loss, +fatigue EYES: No discharge, no visual changes, no pain HEENT: No ear pain, no congestion, no sore throat PULM: No shortness of breath, no cough, no congestion CV: No chest pain, no palpitations GI: No nausea, no vomiting, no diarrhea, no pain, no constipation : No frequency, no urgency, no dysuria MUSC/SKEL: No joint pain, no back pain SKIN: No rash NEURO: No weakness, no headache Past Medical History Past Medical History NEUROLOGIC: Positive Seizures PSYCHO/SOCIAL: Positive Psychiatric Problems (OCD), Behavior Problems and Eating Disorder (Prader Willi syndrome) OTHER HISTORY: Positive Hospitalization and Developmental Delay Family History FAMILY HISTORY: Positive Family Cardiac Disorders (grandpa (dads side) heart attack) Social History SMOKING STATUS: Never smoker SECOND HAND EXPOSURE: No ED Exam General Limitations: Present no limitations General appearance: Present alert (Prader-willi facies) and in no apparent distress Head Head exam: Present normocephalic and other (There is an abrasion to the mid upper forehead) Eye Eye exam: Present PERRL, EOMI and other (Very mild ecchymosis underneath eyes ) ENT ENT exam: Present normal exam, normal oropharynx and mucous membranes moist Neck Neck exam: Present normal inspection, full ROM and trachea midline Chest Chest inspection: Present normal inspection and symmetric chest wall rise Respiratory Respiratory exam: Present normal lung sounds bilaterally Cardiovascular Cardiovascular exam: Present regular rate, normal rhythm and normal heart sounds Abdominal Exam Abdominal exam: Present soft and normal bowel sounds Extremities Exam Extremities exam: Present normal inspection, full ROM and other (Mild 1+ edema bilaterally ) Back Exam Back exam: Present normal inspection and full ROM Neurological Exam Neurological exam: Present alert, oriented X3 and CN II-XII intact Psychiatric Psychiatric exam: Present normal affect and normal mood Skin Skin exam: Present warm and dry Course Quality Measures none Orders Category Date Time Status Glucose [Bedside Blood Glucose] Q1HR Care 02/07/25 11:10 Active Saline [Insert IV] NOW Care 02/07/25 11:05 Active US abdomen limited Stat Exams 02/07/25 11:11 Taken CBC Stat Lab 02/07/25 11:31 Completed CMP [Comprehensive Metabolic Panel] Stat Lab 02/07/25 11:31 Completed Free T4 (Free Thyroxine) Stat Lab 02/07/25 11:31 Completed TSH [Thyroid Stimulating Hormone] Stat Lab 02/07/25 11:31 Completed Type and Screen Stat Lab 02/07/25 11:31 Results Urinalysis, C/S if Indicated Stat Lab 02/07/25 11:04 Ordered Vital Signs Vital signs: Vital Signs Pulse Rate 55 L 02/07/25 10:59 Respiratory Rate 18 02/07/25 10:59 Blood Pressure 93/50 L 02/07/25 10:59 Pulse Oximetry (%) 98 02/07/25 10:59 Oxygen Delivery Method Room Air 02/07/25 10:59 Pulse ox is 98% on room air which is adequate. Recheck / Abnormal Lab / Rx MDM Narrative MDM Narrative:: Patient is a 24 year old female with history of Prader-Willi syndrome, episodes of hypoglycemia, remote seizures who presented to the ED with elevated TSH levels from local clinic. Caregiver state they have an appt with light bulb replacer on February 22 as they were already aware of lab issues from previous hospitalization. The patient is awake, alert, oriented, eating well. I discussed plan with both patient and content specialist to start her on Levothyroxine 25mcg daily. They are in agreement with plan. Patient will follow up with light bulb replacer or sooner if there are any issues. Patient will otherwise continue her medications. The patent was encouraged to eat more calories to keep sugar elevated. There were concerns also from clinic of hypotension however HR 93/62, HR 58 which is believed to be within normal limits for this patient. She is in no distress and stable. There were also concerns for lethargy and hypoglycemia. Patient was not lethargic and also was not hypoglycemic and eating well in the emergency department. Patient data External records reviewed:: [facility] previous records (I reviewed admission from 01/23/2025 through 01/25/2025) Clinical information provided by:: patient and content specialist Social determinants that could affect healthcare access:: housing (custodial resident) Patient has the following chronic illnesses:: Prader-Willi syndrome, episodes of hypoglycemia, remote seizures How is presenting disease/condition affected by chronic disease/condition?: exacerbated by Evaluation data The following diagnostics were reviewed and interpreted by me:: lab results Lab and/or radiology exams considered but not ordered:: None Interpretation Summary: H/H 08/29/32.6 although patient is chronically low Medications / Prescriptions Medications or Prescriptions considered but not ordered:: None Medication administrations:: None Consultations Consultation(s) initiated? (list below): No Diagnosis Recheck Differential Diagnosis: encounter for medication refill and other (Wellness exam, hypoglycemia ) Most likely diagnosis given after review of the tests above:: Elevated TSH Hypothyroidism hx of hypoglycemia Admission Indicated Admission indicated?: not indicated Admission Request Was there a request for admission?: No Disposition Plan Disposition Plan: Discharge Discharge Attestation Discharge Attestation: The patient and all family members were given an opportunity to ask questions and understood the discharge instructions. Discharge instructions specifically effects, indications for sooner follow up or return to the emergency department, and the expected course of current diagnosis. Patient condition: Stable Discharge Plan Plan Patient Disposition: HOME (Self Care) Prescriptions/Referrals Prescriptions/Med Rec: New levothyroxine [Synthroid] 25 mcg tablet 25 mcg PO QDAY Qty: 14 0RF No Action docusate sodium 100 mg capsule 100 mg PO BID loratadine 10 mg tablet 10 mg PO QDAY trazodone 50 mg Tablet 50 mg PO HS Qty: 30 0RF fluoxetine 60 mg tablet 60 mg PO QDAY Qty: 30 0RF Gvoke 1 mg/0.2 mL solution 1 mg subcut Q20M PRN (Reason: hypoglycemia) Qty: 0.2 0RF Rx Instructions: until target blood sugar attained Referrals: John Millard MD [Primary Care Provider] - In 1 week Problem List Clinical Impression: Hypothyroidism Patient/Caregiver Discharge Instructions Discharge Activity: activity as tolerated Education Materials: ED Hypothyroidism Additional Instructions: follow up with your endocrine MD as scheduled 02/22/2025 Print Language: Greenlandic
[2025-02-07 11:52] LABS: Basophils # (Auto) 0.1 Thou/mm3 (0.0-0.2); Basophils % (Auto) 1 % (0-2.5); Eosinophils # (Auto) 0.1 Thou/mm3 (0.0-0.5); Eosinophils % (Auto) 1 % (0-10); Hematocrit 32.6 % (36.0-46.0); Hemoglobin 10.3 g/dL (12.0-16.0); Immature Granulocytes % (Auto) 1 % (0-0); Immature Granulocytes Auto 0.02 Thou/mm3 (0.00-0.00); Lymphocytes # (Auto) 1.4 Thou/mm3 (1.0-4.8); Lymphocytes % (Auto) 31 % (10-50); Mean Corpuscular HGB Conc 31.6 g/dl (31.0-37.0); Mean Corpuscular Hemoglobin 28.5 pg (25.0-35.0); Mean Corpuscular Volume 90 fL (80-100); Monocytes # (Auto) 0.6 Thou/mm3 (0.0-0.8); Monocytes % (Auto) 13 % (0-12); Neutrophils # (Auto) 2.4 Thou/mm3 (1.8-7.7); Neutrophils % (Auto) 54 % (37-80); Nucleated Red Blood Cell % 0 /100 WBC (0); Platelet Count 287 Thou/mm3 (140-440); RDW Standard Deviation 56.1 fL (36.4-46.3); Red Blood Count 3.62 Miln/mm3 (4.00-5.20); White Blood Count 4.4 Thou/mm3 (3.6-11.0)
[2025-02-07 12:12] LABS: Alanine Aminotransferase 37 U/L (10-49); Albumin, Serum 3.8 gm/dL (3.5-5.0); Albumin/Globulin Ratio 1.4 (1.2-2.2); Alkaline Phosphatase 122 U/L (46-116); Anion Gap 7 (7-16); Aspartate Amino Transferase 25 U/L (0-34); BUN/Creatinine Ratio 18 Ratio (12-20); Bilirubin,Total 0.4 mg/dL (0.3-1.2); Blood Urea Nitrogen 9 mg/dL (9-23); Calcium 9.6 mg/dL (8.3-10.6); Calcium (Corrected) 9.8 mg/dL (8.5-10.1); Carbon Dioxide 33.2 mMol/L (20.0-31.0); Chloride 101 mMol/L (98-107); Creatinine (Component) 0.5 mg/dL (0.6-1.3); Free T4 (Free Thyroxine) 1.56 ng/dL (0.89-1.76); Globulin 2.8 gm/dL (2.3-3.5); Glucose 74 mg/dL (74-106); Osmolality,Calculated 278 (275-295); Potassium 4.3 mMol/L (3.4-5.1); Sodium 141 mMol/L (136-145); Thyroid Stimulating Hormone 4.96 uIU/mL (0.55-4.78); Total Protein 6.6 gm/dL (5.7-8.2); eGFR > 60 See Note
[2025-02-07 12:25] VITALS: BP 96/59; PULSE 77; RESP 18; O2SAT 99
[2025-02-07 14:24] LABS: Collection Type, Urine Clean Catch
[2025-02-07 14:31] LABS: Bilirubin,Urine Negative (Negative); Blood,Urine Negative (Negative); Clarity,Urine Clear (Clear/Hazy); Color,Urine Colorless (Lt Yel-Yel); Culture Indicated,Urine Not Indicated; Glucose, Urine Trace (Negative); Ketones,Urine Negative (Negative); Leukocyte Esterase,Urine Negative (Negative); Nitrite,Urine Negative (Negative); PH,Urine 6.5 (5.0-7.0); Protein,Urine Negative (Neg - Trace); RBC,Urine 1 /hpf (0-3); Specific Gravity,Urine 1.007 (1.001-1.035); Squamous Epithelial Cell,Urine < 1 /hpf (0-5); Urobilinogen,Urine Negative mg/dL (0.0-1.0); WBC,Urine 1 /hpf (0-5)
== END 2025-02-07 15:08 | disposition home or self-care (01) ==
PROVIDERS: Registered Nurse General Practice; Emergency Provider Family Medicine; PCP Family Medicine
DX: E03.9 Hypothyroidism, unspecified (principal); R79.89 Other specified abnormal findings of blood chemistry; Q87.11 Prader-Willi syndrome; Z79.890 Hormone replacement therapy
CPT/HCPCS: 36415; 76705; 80053; 81001; 84439; 84443; 85025; 86850; 86900; 86901; 99284

== ENCOUNTER 2025-02-13 19:59 | Emergency (ER) | payer MEDICARE, MEDICAID, SELFPAY ==
[2025-02-13 20:28] VITALS: BP 109/71; PULSE 69; RESP 18; TEMP 36.8; O2SAT 96; BMI 21.3
[2025-02-13] MEDS: NAPROXEN 250 MG TABLET 500 MG PO (21:18)
[2025-02-13] MEDS: CYCLObenzaPRINE 5 MG TABLET PO (21:18)
--- NOTE | 2025-02-14 02:08 | PD.EDADULT ---
ED General RME/HPI General Chief complaint: General Adult/Misc Complain Stated complaint: BODY PAIN, BACK PAIN Time Seen by Provider: 02/13/25 20:52 Arrival date/time: 02/13/25 19:59 24F with history of Prader-Willi syndrome, hypothyroidism, psych, and seizures presents to ED with caregiver for 1 day ofgeneralized body pain greatest at posterior neck, as well as some neck stiffness. Patient and caregiver deny LOC, AMS, seizures, N/V, fall/trauma, fevers/chills, URI symptoms, vision changes, and speech changes. Caregiver did not give pain meds. Limitations: no limitations Related Data Home Medications ?Medication ?Instructions ?Recorded ?Confirmed docusate sodium 100 mg capsule 100 mg PO BID 01/23/25 01/23/25 loratadine 10 mg tablet 10 mg PO QDAY 01/23/25 01/23/25 Previous Rx's ?Medication ?Instructions ?Recorded fluoxetine 60 mg tablet 60 mg PO QDAY #30 tabs 01/25/25 glucagon 1 mg/0.2 mL subcutaneous 1 mg (0.2 mL) subcut Q20M PRN 01/25/25 solution (Gvoke) hypoglycemia #0.2 mL trazodone 50 mg tablet 50 mg PO HS #30 tabs 01/25/25 levothyroxine 25 mcg tablet 25 mcg PO QDAY #14 tabs 02/07/25 (Synthroid) Allergies Allergy/AdvReac Type Severity Reaction Status Date / Time morphine Allergy Severe Rash Verified 01/23/25 10:49 Review of Systems Review of Systems Systems Reviewed: All systems reviewed, normal except as documented Constitutional Constitutional: Reports system reviewed and no additional complaints, except as documented, Reports as per HPI, Reports body ache(s) (pain), Denies fever(s) and Denies headache(s) ENT Ears, Nose, Mouth, and Throat: Denies disequilibrium, Denies headache(s) and Reports neck pain Cardiovascular Cardiovascular: Reports system reviewed and no additional complaints, except as documented, Denies chest pain and Denies dyspnea Respiratory Respiratory: Reports system reviewed and no additional complaints, except as documented, Denies cough and Denies dyspnea Gastrointestinal Gastrointestinal: Reports system reviewed and no additional complaints, except as documented, Denies abdominal pain, Denies nausea and Denies vomiting Musculoskeletal Musculoskeletal: Reports as per HPI and Reports neck pain Neurologic Neurologic: Reports system reviewed and no additional complaints, except as documented, Denies confusion, Denies disequilibrium and Denies headache(s) Psychiatric Psychiatric: Denies confusion Past Medical History Past Medical History NEUROLOGIC: Positive Seizures; Negative Neurological Disorders, Cerebrovascular Accident, Transient Ischemic Attacks (TIA), Dementia, Alzheimer's Disease, Parkinson's Disease, Brain Tumor, Meningitis, Epilepsy, Multiple Sclerosis, Cerebral Palsy, Amyotrophic Lateral Sclerosis (ALS/Kezia Gehrig's), Guillain-Boaz Syndrome, Spina Bifida, Paralysis, Peripheral Neuropathy, Reid's Palsy, Subdural Hematoma, Migraine, Head Trauma, Spinal Cord Injury or Traumatic Brain Injury CARDIAC: Negative Cardiac Disorders or Congestive Heart Failure RESPIRATORY: Negative Chronic Obstructive Pulmonary Disease (COPD), Asthma, Bronchitis or Cystic Fibrosis GASTROINTESTINAL: Negative Gastrointestinal Disorders, Cirrhosis, Pancreatitis, Celiac Disease, Gall Bladder Disease, Gastrointestinal Bleed, Esophageal Varices, Hernandez's Esophagus, Colitis, Ulcerative Colitis, Diverticulitis, Diverticulosis, Ulcer, Irritable Bowel, Crohn's Disease, Obstructive Bowel, Hiatal Hernia, Hemorrhoids, Gastroesophageal Reflux Disease or Obesity GENITOURINARY: Negative Genitourinary Disorders, Renal Disease, Kidney Stones, Polycystic Kidney Disease, Neurogenic Bladder, Inguinal Hernia, Dialysis or Benign Prostatic Hyperplasia REPRODUCTIVE: Negative Endometriosis, Genital Herpes, Gonorrhea, Pelvic Inflammatory Disease, Previous Pregnancies, Syphilis or Uterine Prolapse MUSCULOSKELETAL: Positive Scoliosis; Negative Musculoskeletal Disorders, Muscular Dystrophy, Myasthenia Gravis, Marfan's Syndrome, Arthritis, Rheumatoid Arthritis, Osteoporosis, Degenerative Disk Disease, Gout, Fibromyalgia, Fractures, Degenerative Joint Disease, Osteomyelitis or Poliovirus ENT: Negative Cataracts, Glaucoma, Blind, Retinal Detachment, Macular Degeneration, Ear Infection, Deafness, Head Trauma or Eye Prosthesis ENDOCRINE: Negative Endocrine Disorders, Diabetes Mellitus Type 1 or Diabetes Mellitus Type 2 HEMATOLOGIC: Negative Blood Disorders, Anemia, Leukemia, Hemophilia, Thalassemia, Sickle Cell Disease or Clotting Problems PSYCHO/SOCIAL: Positive Psychiatric Problems (OCD), Behavior Problems and Eating Disorder (Prader Willi syndrome); Negative Schizophrenia, Recreational Drug Use, Bipolar Disorder, Depression, Anxiety, Self-Mutilation, Attention Deficit Disorder, Attention Deficit Hyperactivity Disorder, Depression or Post Traumatic Stress Disorder OTHER HISTORY: Positive Hospitalization and Developmental Delay; Negative Autoimmune Disease, Down Syndrome, Autism, Shingles, Falls, Blood Transfusions, Blood Transfusion Reaction, Anesthesia Reactions, Organ Transplant, Chemotherapy, Radiation Therapy, Hyperbaric Therapy, MRSA, VRSA, Vancomycin-Resistant Enterococci, Clostridium Difficile or Cancer Family History FAMILY HISTORY: Positive Family Cardiac Disorders (grandpa (dads side) heart attack); Negative Family Psychiatric Problems, Family Respiratory Disorders, Family Gastrointestinal Problems, Family Cancer, Family Surgery or Family Anesthesia Reaction Surgical History SURGICAL: Negative Cardiac Surgery, Endocrine Surgery, Thyroidectomy, Ear Surgery, Abdominal Surgery, Nephrectomy, Neurologic Surgery, Brain Shunt, Mastectomy, Lumpectomy, Hysterectomy, Tubal Ligation, Section or Organ Transplant Social History SMOKING STATUS: Never smoker SECOND HAND EXPOSURE: No ED Exam General Limitations: Present no limitations General appearance: Present alert and in no apparent distress Head Head exam: Present atraumatic Eye Eye exam: Present normal appearance, PERRL and EOMI ENT ENT exam: Present normal exam, normal oropharynx and mucous membranes moist Neck Neck exam: Present normal inspection, full ROM and trachea midline Chest Chest inspection: Present normal inspection and symmetric chest wall rise Respiratory Respiratory exam: Present normal lung sounds bilaterally Cardiovascular Cardiovascular exam: Present regular rate, normal rhythm and normal heart sounds Abdominal Exam Abdominal exam: Present soft and normal bowel sounds Extremities Exam Extremities exam: Present normal inspection and full ROM Back Exam Back exam: Present normal inspection and full ROM Neurological Exam Neurological exam: Present alert, oriented X3 and CN II-XII intact Psychiatric Psychiatric exam: Present normal affect and normal mood Skin Skin exam: Present warm, dry, intact and normal color Course Course Course Narrative: 24F with history of Prader-Willi syndrome, hypothyroidism, psych, and seizures presents to ED with caregiver for 1 day ofgeneralized body pain greatest at posterior neck, as well as some neck stiffness. Patient and caregiver deny LOC, AMS, seizures, N/V, fall/trauma, fevers/chills, URI symptoms, vision changes, and speech changes. Caregiver did not give pain meds. Physical exam reveals normal pupil response and EOM. Some neck stiffness, but ROM intact. ENT and lungs clear. Gait normal. CN II-XII grossly intact. Patient is afebrile, calm, and alert. BS is 83. Swabs neg. Meds relieved symptoms, which were likely MSK in nature. Patient states she's feeling better and ready to leave. Quality Measures none Orders Category Date Time Status Bedside Influenza A&B Antigen Test NOW Care 02/13/25 21:14 Completed Blood glucose [Bedside Blood Glucose] NOW Care 02/13/25 20:53 Completed CYCLObenzaPRINE [Flexeril] Med 02/13/25 20:53 Discontinued 5 mg PO X1 ONE Naproxen [Naprosyn] Med 02/13/25 20:53 Discontinued 500 mg PO X1 ONE Vital Signs Vital signs: Vital Signs Temperature 98.3 F 02/13/25 20:28 Pulse Rate 69 02/13/25 20:28 Respiratory Rate 18 02/13/25 20:28 Blood Pressure 109/71 02/13/25 20:28 Pulse Oximetry (%) 96 02/13/25 20:28 Oxygen Delivery Method Room Air 02/13/25 20:28 O2 at 96% on RA and WNLs MDM Patient data External records reviewed:: [facility] previous records Clinical information provided by:: patient and rural route carrier Social determinants that could affect healthcare access:: none Patient has the following chronic illnesses:: Prader-Willi syndrome, hypothyroidism, psych, and seizures How is presenting disease/condition affected by chronic disease/condition?: exacerbated by Evaluation data The following diagnostics were reviewed and interpreted by me:: lab results Lab and/or radiology exams considered but not ordered:: ordered Interpretation Summary: above Medications Medications considered but not ordered:: ordered Medication administrations:: Medication Administration History Discontinued Medications Cyclobenzaprine HCl (Cyclobenzaprine 5 Mg Tablet) 5 mg PO X1 ONE Stop: 02/13/25 20:54 Last Admin: 02/13/25 21:18 Dose: 5 mg Documented By: Naproxen (Naproxen 250 Mg Tablet) 500 mg PO X1 ONE Stop: 02/13/25 20:54 Last Admin: 02/13/25 21:18 Dose: 500 mg Documented By: above Consultations Consultation(s) initiated? (list below): No Diagnosis Differential Diagnosis ED Complaint MDM: rhabdo, muscle tightness, URI, meningitis, CVA/TIA, torticollis Most likely diagnosis given after review of the tests above:: muscle tightness Admission Indicated Admission indicated?: not indicated Explain why admission is indicated or not indicated:: outpatient Admission Request Was there a request for admission?: No Disposition Plan Disposition Plan: Discharge Discharge Attestation Discharge Attestation: The patient and all family members were given an opportunity to ask questions and understood the discharge instructions. Discharge instructions specifically effects, indications for sooner follow up or return to the emergency department, and the expected course of current diagnosis. Patient condition: Stable Medical Decision Making Differential Diagnosis Differential Diagnosis: rhabdo, muscle tightness, URI, meningitis, CVA/TIA, torticollis Discharge Plan Plan Patient Disposition: HOME (Self Care) Disposition Comment: Stable Prescriptions/Referrals Prescriptions/Med Rec: No Action levothyroxine [Synthroid] 25 mcg tablet 25 mcg PO QDAY Qty: 14 0RF docusate sodium 100 mg capsule 100 mg PO BID loratadine 10 mg tablet 10 mg PO QDAY trazodone 50 mg Tablet 50 mg PO HS Qty: 30 0RF fluoxetine 60 mg tablet 60 mg PO QDAY Qty: 30 0RF Gvoke 1 mg/0.2 mL solution 1 mg subcut Q20M PRN (Reason: hypoglycemia) Qty: 0.2 0RF Rx Instructions: until target blood sugar attained Referrals: No Primary/Family,Physician [Primary Care Provider] - In 1 week Problem List Clinical Impression: Muscle tightness Patient/Caregiver Discharge Instructions Additional Instructions: Please follow-up with PCP within 24-48 hours and return immediately if symptoms worsen. Print Language: Hungarian Stand Alone Forms: Patient Portal Info Letter PA/ROUTE DELIVERY SERVICE DRIVER Supervising Physician LUCIA/ROUTE DELIVERY SERVICE DRIVER Supervising Physician: Dr. Hatfield
== END 2025-02-13 22:45 | disposition home or self-care (01) ==
PROVIDERS: Emergency Provider Emergency Medicine
DX: M62.48 Contracture of muscle, other site (principal)
CPT/HCPCS: 87400; 87811; 99283; A9270

== ENCOUNTER 2025-08-14 14:19 | Emergency (ER) | payer MEDICARE, MEDICAID, SELFPAY ==
[2025-08-14 14:38] VITALS: BP 117/76; PULSE 108; RESP 18; TEMP 36.8; O2SAT 97
--- NOTE | 2025-08-14 14:44 | XR_ITS ---
Examination: AP chest single view Technique one AP upright portable chest single view Date and time: August 14, 2025 1503 hours, comparison January 23, 2025 INDICATIONS: Chest pain coughing beginning 2 months ago. FINDINGS: Large retrocardiac gastric hernia Suspicious for early pneumonia in the lingular segment left upper lobe Normal heart size Severe scoliosis again depicted IMPRESSION: Suspicious for early pneumonia in the lingular segment left upper lobe
--- NOTE | 2025-08-14 14:44 | PD.EDRME ---
Rapid Medical Screening Exam RME Arrival date/time: 08/14/25 14:19 25-year-old female of any skilled nursing presents to the emergency department with caregiver who reports patient is having hallucinations Chief Complaint: Psychiatric Symptoms Vital signs: Vital Signs Temperature 98.3 F 08/14/25 14:38 Pulse Rate 108 H 08/14/25 14:38 Respiratory Rate 18 08/14/25 14:38 Blood Pressure 117/76 08/14/25 14:38 Pulse Oximetry (%) 97 08/14/25 14:38 Oxygen Delivery Method Room Air 08/14/25 14:38
[2025-08-14 15:02] LABS: Collection Type, Urine Clean Catch; WBC,Urine 0 /hpf (0-5)
[2025-08-14 15:28] LABS: Basophils # (Auto) 0.1 Thou/mm3 (0.0-0.2); Basophils % (Auto) 1 % (0-2.5); Eosinophils # (Auto) 0.1 Thou/mm3 (0.0-0.5); Eosinophils % (Auto) 1 % (0-10); Hematocrit 36.0 % (36.0-46.0); Hemoglobin 11.5 g/dL (12.0-16.0); Immature Granulocytes Auto 0.04 Thou/mm3 (0.00-0.00); Lymphocytes # (Auto) 1.8 Thou/mm3 (1.0-4.8); Lymphocytes % (Auto) 16 % (10-50); Mean Corpuscular HGB Conc 31.9 g/dl (31.0-37.0); Mean Corpuscular Hemoglobin 28.6 pg (25.0-35.0); Mean Corpuscular Volume 90 fL (80-100); Monocytes # (Auto) 1.1 Thou/mm3 (0.0-0.8); Monocytes % (Auto) 10 % (0-12); Neutrophils # (Auto) 7.9 Thou/mm3 (1.8-7.7); Neutrophils % (Auto) 72 % (37-80); Nucleated Red Blood Cell # 0.00 Thou/mm3 (0.00-0.00); Nucleated Red Blood Cell % 0 /100 WBC (0); Platelet Count 247 Thou/mm3 (140-440); RDW Standard Deviation 47.1 fL (36.4-46.3); Red Blood Count 4.02 Miln/mm3 (4.00-5.20); White Blood Count 11.0 Thou/mm3 (3.6-11.0)
[2025-08-14 15:39] LABS: B-Type Natriuretic Peptide 24 pg/mL (0-100)
[2025-08-14 15:41] LABS: Alanine Aminotransferase 25 U/L (10-49); Albumin, Serum 4.0 gm/dL (3.5-5.0); Albumin/Globulin Ratio 1.7 (1.2-2.2); Alkaline Phosphatase 82 U/L (46-116); Anion Gap 9 (7-16); Aspartate Amino Transferase 34 U/L (0-34); BUN/Creatinine Ratio 11 Ratio (12-20); Bilirubin,Total 0.3 mg/dL (0.3-1.2); Blood Urea Nitrogen 8 mg/dL (9-23); Calcium 9.7 mg/dL (8.3-10.6); Calcium (Corrected) 9.7 mg/dL (8.5-10.1); Carbon Dioxide 29.3 mMol/L (20.0-31.0); Chloride 95 mMol/L (98-107); Creatinine (Component) 0.7 mg/dL (0.6-1.3); Globulin 2.3 gm/dL (2.3-3.5); Glucose 89 mg/dL (74-106); Magnesium 1.5 mg/dL (1.6-2.6); Osmolality,Calculated 263 (275-295); Potassium 4.6 mMol/L (3.4-5.1); Sodium 133 mMol/L (136-145); Total Protein 6.3 gm/dL (5.7-8.2); Troponin I < 0.002 ng/mL (0.0-0.045); eGFR > 60 See Note
[2025-08-14 15:47] LABS: HCG Qualitative,Urine Negative
[2025-08-14 15:57] LABS: Amphetamine/Methamp Scrn,U Negative (Negative); Barbiturate Screen,Urine Negative (Negative); Benzodiazepines Screen,Urine Negative (Negative); Benzoylecgonine Screen, Ur Negative (Negative); Fentanyl Screen,Urine Negative (Negative); Opiate Screen,Urine Negative (Negative); THC Screen,Urine Negative (Negative)
[2025-08-14 15:59] LABS: Bilirubin,Urine Negative (Negative); Blood,Urine Negative (Negative); Clarity,Urine Clear (Clear/Hazy); Color,Urine Colorless (Lt Yel-Yel); Culture Indicated,Urine Not Indicated; Glucose, Urine Negative (Negative); Ketones,Urine Negative (Negative); Leukocyte Esterase,Urine Negative (Negative); Nitrite,Urine Negative (Negative); PH,Urine 6.5 (5.0-7.0); Protein,Urine Negative (Neg - Trace); RBC,Urine < 1 /hpf (0-3); Specific Gravity,Urine 1.006 (1.001-1.035); Squamous Epithelial Cell,Urine < 1 /hpf (0-5); Urobilinogen,Urine Negative mg/dL (0.0-1.0)
[2025-08-14 16:14] LABS: INR 0.9 (0.9-1.3); Partial Thromboplastin Time 24.1 Seconds (22.0-36.0); Prothrombin Time 10.3 Seconds (9.0-12.2)
--- NOTE | 2025-08-14 17:54 | PD.EDPSYCH ---
ED Psych RME/HPI General Chief Complaint: Psychiatric Symptoms Stated Complaint: HALLUCINATING PER STAFF Time Seen by Provider: 08/14/25 16:59 Arrival date/time: 08/14/25 14:19 RME / HPI RME / HPI Narrative: 25-year-old female of any skilled nursing presents to the emergency department with caregiver who reports patient is having hallucinations. Patient's been having on and off hallucination for the last 4 days. Severity mild. Patient denies any homicidal or suicidal ideation. Patient was seen by her neurologist, who prescribed her risperidone that the patient had to start taking it today. Patient denies any fever denies any cough denies any vomiting denies any headache denies any complaints. Related Data Home Medications ?Medication ?Instructions ?Recorded ?Confirmed docusate sodium 100 mg capsule 100 mg PO BID 01/23/25 01/23/25 loratadine 10 mg tablet 10 mg PO QDAY 01/23/25 01/23/25 Previous Rx's ?Medication ?Instructions ?Recorded fluoxetine 60 mg tablet 60 mg PO QDAY #30 tabs 01/25/25 glucagon 1 mg/0.2 mL subcutaneous 1 mg (0.2 mL) subcut Q20M PRN 01/25/25 solution (Gvoke) hypoglycemia #0.2 mL trazodone 50 mg tablet 50 mg PO HS #30 tabs 01/25/25 levothyroxine 25 mcg tablet 25 mcg PO QDAY #14 tabs 02/07/25 (Synthroid) Allergies Allergy/AdvReac Type Severity Reaction Status Date / Time morphine Allergy Severe Rash Verified 01/23/25 10:49 Review of Systems Review of Systems Narrative Review of Systems: Review of system reviewed and within normal limits except mentioned in HPI ED Exam Narrative Physical exam: VITAL SIGNS: Reviewed. GENERAL APPEARANCE: Alert and interactive, follows commands, no acute distress, HEAD AND FACE: Non-traumatic. ENT: PERRL, pink conjunctivitis, eyelid no trauma, Mucous membrane moist. NECK: Supple, nontender, no nuchal rigidity. CHEST: No tenderness, no crepitus, no paradoxical movement, no retractions. LUNGS: Clear, well ventilated, symmetric, no rales, no wheezing, no ronchi, no stridor, good breath sounds bilaterally. HEART: Regular rate, regular rhythm, no murmur, no gallops. ABDOMEN: Soft, positive bowel sounds, nondistended, no guarding, nontender, no rebound, no masses, RECTAL: Deferred. GENITAL: Deferred. NEUROLOGICAL: Gross motor function intact sensory function intact, Appropriate for age. MUSCULOSKELETAL: low back nontender, full range of motion. EXTREMITIES: Nontender, full range of motion. SKIN: Color pink, dry, no rash, no lacerations, no abrasions, no contusions. LYMPHATICS: Deferred. Course Quality Measures none Orders Category Date Time Status XR chest 2V Stat Exams 08/14/25 14:44 Completed B-Type Natriuretic Peptide Stat Lab 08/14/25 14:54 Completed CBC Stat Lab 08/14/25 14:54 Completed Comprehensive Metabolic Panel Stat Lab 08/14/25 14:54 Completed Drug Screen,Urine Stat Lab 08/14/25 14:54 Completed HCG Qualitative,Urine Stat Lab 08/14/25 14:54 Completed Magnesium Stat Lab 08/14/25 14:54 Completed Partial Thromboplastin Time Stat Lab 08/14/25 14:54 Completed Prothrombin Time with INR Stat Lab 08/14/25 14:54 Completed Troponin I Stat Lab 08/14/25 14:54 Completed Urinalysis, C/S if Indicated Stat Lab 08/14/25 14:54 Completed Magnesium Oxide [Mag-Ox 400] Med 08/14/25 17:48 Discontinued 400 mg PO X1 ONE Vital Signs Vital signs: Vital Signs Temperature 98.3 F 08/14/25 14:38 Pulse Rate 108 H 08/14/25 14:38 Respiratory Rate 18 08/14/25 14:38 Blood Pressure 117/76 08/14/25 14:38 Pulse Oximetry (%) 97 08/14/25 14:38 Oxygen Delivery Method Room Air 08/14/25 14:38 Psych MDM Narrative MDM Narrative:: 25-year-old female of any skilled nursing presents to the emergency department with caregiver who reports patient is having hallucinations. Patient's been having on and off hallucination for the last 4 days. Severity mild. Patient denies any homicidal or suicidal ideation. Patient was seen by her neurologist, who prescribed her risperidone that the patient had to start taking it today. Patient denies any fever denies any cough denies any vomiting denies any headache denies any complaints. Patient's workup today all came back unremarkable except magnesium 1.5 chest x-ray showed possible pneumonia however clinically patient is not having any pneumonia. No cough no fever no chest pain no shortness of breath. Patient was given magnesium p.o. in the emergency room. Urinalysis no UTI. Case discussed with patient's neurologist, Dr Moon, who told me to tell them to continue taking the risperidone that was prescribed earlier today. Stable for discharge home I was able to talk to patient's sales consultant residential manager in the skilled nursing. Patient data External records reviewed:: None Clinical information provided by:: none Social determinants that could affect healthcare access:: none Patient has the following chronic illnesses:: Hypothyroidism new onset seizure How is presenting disease/condition affected by chronic disease/condition?: exacerbated by Evaluation data The following diagnostics were reviewed and interpreted by me:: lab results and radiology exam(s) Lab and/or radiology exams considered but not ordered:: None Interpretation Summary: See results MDM Medications / Prescriptions Medications or Prescriptions considered but not ordered:: None Medication administrations:: Medication Administration History Discontinued Medications Magnesium Oxide (Magnesium Oxide 400 Mg Tablet) 400 mg PO X1 ONE Stop: 08/14/25 17:49 Magnesium Consultations Consultation(s) initiated? (list below): No Diagnosis Psych Differential Diagnosis: acute psychosis, drug-induced psychotic disorder and other (Hallucination) Most likely diagnosis given after review of the tests above:: Hallucination Admission Indicated Admission indicated?: not indicated Admission Request Was there a request for admission?: No Disposition Plan Disposition Plan: Discharge Discharge Attestation Discharge Attestation: The patient and all family members were given an opportunity to ask questions and understood the discharge instructions. Discharge instructions specifically effects, indications for sooner follow up or return to the emergency department, and the expected course of current diagnosis. Patient condition: Stable Discharge Plan Plan Patient Disposition: HOME (Self Care) Discharge Disposition comment: Stable Prescriptions/Referrals Prescriptions/Med Rec: No Action levothyroxine [Synthroid] 25 mcg tablet 25 mcg PO QDAY Qty: 14 0RF docusate sodium 100 mg capsule 100 mg PO BID loratadine 10 mg tablet 10 mg PO QDAY trazodone 50 mg Tablet 50 mg PO HS Qty: 30 0RF fluoxetine 60 mg tablet 60 mg PO QDAY Qty: 30 0RF Gvoke 1 mg/0.2 mL solution 1 mg subcut Q20M PRN (Reason: hypoglycemia) Qty: 0.2 0RF Rx Instructions: until target blood sugar attained Referrals: John Millard MD [Primary Care Provider, Family Practice] - In 1 week Problem List Clinical Impression: Hallucination Patient/Caregiver Discharge Instructions Discharge Activity: activity as tolerated Education Materials: ED Psychosis Additional Instructions: Thank you for the opportunity for serving you today. You are stable for discharged . You are advised to: Follow-up with your PCP in 1 to 2 days Return to ED for worsening of symptoms Increase oral fluids Take medication as prescribed earlier today by Dr. Moon Continue all other medications prescribed by your MD's Print Language: Citizen [place] Stand Alone Forms: [employer] Award Info., Patient Portal Info Letter PA/YARN HAULER Supervising Physician PA/YARN HAULER Supervising Physician: MD Jaden
== END 2025-08-14 18:54 | disposition home or self-care (01) ==
PROVIDERS: Nurse Practitioner Primary Care; Emergency Provider Emergency Medicine; PCP Family Medicine
DX: R44.3 Hallucinations, unspecified (principal); R07.9 Chest pain, unspecified; R05.9 Cough, unspecified
CPT/HCPCS: 36415; 71046; 80053; 80307; 81001; 81025; 83735; 83880; 84484; 85025; 85610; 85730; 99284

== ENCOUNTER 2025-10-13 11:48 | Inpatient (IN) | payer MEDICARE, MEDICAID, SELFPAY ==
[2025-10-13] VITALS (9 sets, daily range): BP systolic 98–120; BP diastolic 42–56; PULSE 48–86; RESP 18–99; TEMP 31.4–37.4; O2SAT 97–99; BMI 21.3
--- NOTE | 2025-10-13 12:22 | XR_ITS ---
EXAMINATION: AP chest single view TECHNIQUE: AP portable supine chest single view Date and time: October 13 2025, 12:56 p.m. INDICATIONS: Sepsis alert today. FINDINGS: The film is severely rotated RPO Lumbar levoscoliosis with orthopedic support rods Cardiac contour is difficult to measure No lobar pneumonia IMPRESSION: Limited study No lobar pneumonia noted
--- NOTE | 2025-10-13 12:22 | EKG_ITS ---
[facility] Test Date: 2025-10-13 Pat Name: SELENE PENA Department: Room: - Gender: Female Swimming Pool Servicer: : [id number] Requested By: Jaspal Melgar Order Number: [id number] Reading MD: Jaspal Melgar Measurements Intervals [place] Rate: 44 P: 44 TN: 141 QRS: 54 QRSD: 94 T: 75 QT: 467 QTc: 402 Interpretive Statements SINUS BRADYCARDIA NONSPECIFIC T-WAVE ABNORMALITY Compared to ECG 01/23/2025 12:08:54 T-wave abnormality now present Atrial-paced complex(es) or rhythm no longer present /store/S0/[id number]/ecg/[id number].pdf
--- NOTE | 2025-10-13 12:30 | PD.EDADULT ---
ED General RME/HPI General Chief complaint: Dizziness Stated complaint: UNSTEADY AND OFF BALANCED X3 DAYS Time Seen by Provider: 10/13/25 12:17 Arrival date/time: 10/13/25 11:48 CC: Shakiness unsteady gait HPI patient has had shakiness and unsteady gait for the last 2-1/2 days. Window Systems Administrator states the patient has continued to eat sleep and abnormal bowel regiment however has been shaky to the point of being unsteady on her feet. Last episode of this the patient required admission. Upon initial assessment the patient's core temp via rectal probe was 89.8. The patient is hypothermic. Patient is developmentally delayed with prior Willi syndrome, but has no complaints including chest pain shortness of breath or difficulty breathing. She denies pain with urination. Last admission was December 2024 for same complaint. Related Data Home Medications ?Medication ?Instructions ?Recorded ?Confirmed docusate sodium 100 mg capsule 100 mg PO BID 01/23/25 01/23/25 loratadine 10 mg tablet 10 mg PO QDAY 01/23/25 01/23/25 Previous Rx's ?Medication ?Instructions ?Recorded fluoxetine 60 mg tablet 60 mg PO QDAY #30 tabs 01/25/25 glucagon 1 mg/0.2 mL subcutaneous 1 mg (0.2 mL) subcut Q20M PRN 01/25/25 solution (Gvoke) hypoglycemia #0.2 mL trazodone 50 mg tablet 50 mg PO HS #30 tabs 01/25/25 levothyroxine 25 mcg tablet 25 mcg PO QDAY #14 tabs 02/07/25 (Synthroid) Allergies Allergy/AdvReac Type Severity Reaction Status Date / Time morphine Allergy Severe Rash Verified 10/13/25 11:53 Review of Systems Review of Systems Narrative Review of Systems: GEN:+ Cold, No fever, no chills, no weight loss EYES: No discharge, no visual changes, no pain HEENT: No ear pain, no congestion, no sore throat PULM: No shortness of breath, no cough, no congestion CV: No chest pain, no dyspnea on exertion, no palpitations GI: No nausea, no vomiting, no diarrhea, no pain, no constipation : No frequency, no urgency, no dysuria MUSC/SKEL: No joint pain, no back pain SKIN: No rash PSYCH: No hallucinations, no depression HEME/LYMPH: No easy bleeding or bruising tendencies NEURO: No weakness, no headache Past Medical History Past Medical History NEUROLOGIC: Positive Seizures; Negative Neurological Disorders, Cerebrovascular Accident, Transient Ischemic Attacks (TIA), Dementia, Alzheimer's Disease, Parkinson's Disease, Brain Tumor, Meningitis, Epilepsy, Multiple Sclerosis, Cerebral Palsy, Amyotrophic Lateral Sclerosis (ALS/Kezia Gehrig's), Guillain-Dallas Syndrome, Spina Bifida, Paralysis, Peripheral Neuropathy, Reid's Palsy, Subdural Hematoma, Migraine, Head Trauma, Spinal Cord Injury or Traumatic Brain Injury CARDIAC: Negative Cardiac Disorders or Congestive Heart Failure RESPIRATORY: Negative Chronic Obstructive Pulmonary Disease (COPD), Asthma, Bronchitis or Cystic Fibrosis GASTROINTESTINAL: Negative Gastrointestinal Disorders, Cirrhosis, Pancreatitis, Celiac Disease, Gall Bladder Disease, Gastrointestinal Bleed, Esophageal Varices, Hernandez's Esophagus, Colitis, Ulcerative Colitis, Diverticulitis, Diverticulosis, Ulcer, Irritable Bowel, Crohn's Disease, Obstructive Bowel, Hiatal Hernia, Hemorrhoids, Gastroesophageal Reflux Disease or Obesity GENITOURINARY: Negative Genitourinary Disorders, Renal Disease, Kidney Stones, Polycystic Kidney Disease, Neurogenic Bladder, Inguinal Hernia, Dialysis or Benign Prostatic Hyperplasia REPRODUCTIVE: Negative Endometriosis, Genital Herpes, Gonorrhea, Pelvic Inflammatory Disease, Previous Pregnancies, Syphilis or Uterine Prolapse MUSCULOSKELETAL: Positive Scoliosis; Negative Musculoskeletal Disorders, Muscular Dystrophy, Myasthenia Gravis, Marfan's Syndrome, Arthritis, Rheumatoid Arthritis, Osteoporosis, Degenerative Disk Disease, Gout, Fibromyalgia, Fractures, Degenerative Joint Disease, Osteomyelitis or Poliovirus ENT: Negative Cataracts, Glaucoma, Blind, Retinal Detachment, Macular Degeneration, Ear Infection, Deafness, Head Trauma or Eye Prosthesis ENDOCRINE: Negative Endocrine Disorders, Diabetes Mellitus Type 1 or Diabetes Mellitus Type 2 HEMATOLOGIC: Negative Blood Disorders, Anemia, Leukemia, Hemophilia, Thalassemia, Sickle Cell Disease or Clotting Problems PSYCHO/SOCIAL: Positive Psychiatric Problems (OCD), Behavior Problems and Eating Disorder (Prader Willi syndrome); Negative Schizophrenia, Recreational Drug Use, Bipolar Disorder, Depression, Anxiety, Self-Mutilation, Attention Deficit Disorder, Attention Deficit Hyperactivity Disorder, Depression or Post Traumatic Stress Disorder OTHER HISTORY: Positive Hospitalization and Developmental Delay; Negative Autoimmune Disease, Down Syndrome, Autism, Shingles, Falls, Blood Transfusions, Blood Transfusion Reaction, Anesthesia Reactions, Organ Transplant, Chemotherapy, Radiation Therapy, Hyperbaric Therapy, MRSA, VRSA, Vancomycin-Resistant Enterococci, Clostridium Difficile or Cancer Family History FAMILY HISTORY: Positive Family Cardiac Disorders (grandpa (dads side) heart attack); Negative Family Psychiatric Problems, Family Respiratory Disorders, Family Gastrointestinal Problems, Family Cancer, Family Surgery or Family Anesthesia Reaction Surgical History SURGICAL: Negative Cardiac Surgery, Endocrine Surgery, Thyroidectomy, Ear Surgery, Abdominal Surgery, Nephrectomy, Neurologic Surgery, Brain Shunt, Mastectomy, Lumpectomy, Hysterectomy, Tubal Ligation, Section or Organ Transplant Social History SMOKING STATUS: Never smoker SECOND HAND EXPOSURE: No ED Exam Narrative Physical exam: [General: Petite, appears not in any acute distress Head normocephalic HEENT: Eyes pupils are PERRLA EOMs are intact mouth pink dry membranes uvula is midline swallow symmetrical phonation normal all of the subsystems of HEENT are within acceptable limits Neck is supple nontender, no JVD no edema Chest equal chest rise nontender to palpation Respiratory: Clear to auscultation no wheezes crackles or rubs CV: Rate rhythm is regular no murmurs rubs or clicks Abdomen is soft nontender no masses positive bowel sounds all 4 quadrants Back: No CVA tenderness no spinous process tenderness from cervical spine thoracic and lumbar spine Skin: Cool to touch, not mottled, skin picking to the face and behind the left ear (care provider states the patient has a chronic habit of skin picking). No site has surrounding erythema edema exudate or bleeding. Otherwise skin is intact no petechiae rash induration ulceration or crepitus Extremities: Moving all extremities against resistance cap refill less than 2 seconds neurosensory intact. Noted ambulating to room with unsteady gait. Neuro: Awake alert oriented x2, person and place Glascow coma 15 no focal deficits] Course Course Course Narrative: Patient case discussed with resident for Dr. Chang who initially came and assessed the patient added a second liter of fluid to it, we have since canceled the CT as the patient is probably hypothermic and hypotensive secondary to poor dietary intake. She has accepted the patient for admission. Quality Measures none Orders Category Date Time Status Bedside COVID-19 Antigen Test NOW Care 10/13/25 12:31 Active Naprapath STAT Care 10/13/25 12:22 Active Continuous Pulse Oximetry STAT Care 10/13/25 12:22 Completed EKG (ED ONLY) *Do not use* NOW Care 10/13/25 12:22 Completed In and Out Catheter X1 Care 10/13/25 12:26 Completed In and Out Catheter X1PRN Care 10/13/25 12:22 Completed Insert IV NOW Care 10/13/25 12:22 Active NPO STAT Care 10/13/25 12:22 Active Strict Intake and Output Routine Care 10/13/25 12:[address] abdomen pelvis wo con Stat Exams 10/13/25 15:26 Stop Req EKG (ED Only) Stat Exams 10/13/25 12:22 Draft XR chest 1V SEPSIS PROTOCOL Stat Exams 10/13/25 12:22 Completed B-Type Natriuretic Peptide Stat Lab 10/13/25 12:39 Completed Blood Culture (Lab) Stat Lab 10/13/25 12:39 Received CBC Stat Lab 10/13/25 12:39 Completed Comprehensive Metabolic Panel Stat Lab 10/13/25 12:39 Completed Free T4 (Free Thyroxine) Stat Lab 10/13/25 12:39 Completed Influenza A & B Rapid Panel Stat Lab 10/13/25 13:30 Completed LDH (Lactate Dehydrogenase) Stat Lab 10/13/25 12:39 Completed Lactate (Lactic Acid) Stat Lab 10/13/25 12:39 Results Lactic Acid [Lactate (Lactic Acid)] Stat Lab 10/13/25 15:18 Ordered Lipase Stat Lab 10/13/25 12:39 Completed Magnesium Stat Lab 10/13/25 12:39 Completed Partial Thromboplastin Time Stat Lab 10/13/25 14:05 Completed Phosphorous Stat Lab 10/13/25 12:39 Completed Procalcitonin Stat Lab 10/13/25 12:39 Completed Prothrombin Time with INR Stat Lab 10/13/25 14:05 Completed RSV [Respiratory Syncytial Virus Ag] Stat Lab 10/13/25 15:02 Received TSH [Thyroid Stimulating Hormone] Stat Lab 10/13/25 12:39 Completed Troponin I Stat Lab 10/13/25 12:39 Completed Urinalysis, C/S if Indicated Stat Lab 10/13/25 13:50 Completed Ringers Lactated 1000 ml [Lactated Ringers] 1,075 ml Med 10/13/25 12:22 Discontinued IV 1,075 mls/hr Sodium Chloride 0.9% 1000 ml [Ns] 1,000 ml Med 10/13/25 12:26 Active IV 85 mls/hr cefTRIAXone/D5w 1gm IV premix [Rocephin/D5w 1gm IV Med 10/13/25 13:00 Discontinued premix] 1 gm in 50 ml IV X1 Oxygen Delivery NOW RT 10/13/25 12:22 Active Vital Signs Vital signs: Vital Signs Pulse Rate 56 L 10/13/25 12:01 Respiratory Rate 18 10/13/25 12:01 Pulse Oximetry (%) 99 10/13/25 12:01 Oxygen Delivery Method Room Air 10/13/25 12:01 Discharge Plan Plan Patient Disposition: Other Care w/in Hosp (SDC/NASIM) Prescriptions/Referrals Prescriptions/Med Rec: No Action levothyroxine [Synthroid] 25 mcg tablet 25 mcg PO QDAY Qty: 14 0RF docusate sodium 100 mg capsule 100 mg PO BID loratadine 10 mg tablet 10 mg PO QDAY trazodone 50 mg Tablet 50 mg PO HS Qty: 30 0RF fluoxetine 60 mg tablet 60 mg PO QDAY Qty: 30 0RF Gvoke 1 mg/0.2 mL solution 1 mg subcut Q20M PRN (Reason: hypoglycemia) Qty: 0.2 0RF Rx Instructions: until target blood sugar attained Referrals: John Millard MD [Primary Care Provider, [facility]] - In 1 week Problem List Clinical Impression: Subclinical hypothyroidism, Hypothermia, Sepsis Patient/Caregiver Discharge Instructions Print Language: Uzbek Stand Alone Forms: Cony Award Info., Patient Portal Info Letter PA/TOBACCO HANGER Supervising Physician PA/TOBACCO HANGER Supervising Physician: Jaspal Hodges ENP [facility] Clinical Information Provided by: patient and guardian Medical Records reviewed [facility] Meds/Rx considered, not ordered None Labs/Rad/Tests considered, not ordered None Chronic Illness/Social Conditions Explain: Prader-Willi syndrome hypothyroidism EKG Interpretation EKG #1: EKG Interpretation: EKG performed at 1255 shows a ventricular rate of 4 4 NJ interval 141 QRS of 94 QTc of 418 this is sinus bradycardia, unchanged from an EKG performed in November 2024. Labs Labs: interpreted by ak Lab(s) Interpretation(s): CBC shows no acute leukocytosis anemia but there is thrombocytopenia CMP shows no significant electrolyte imbalances renal impairment transaminitis or T. bili elevation Lactic at 3.0 Troponin is unremarkable BNP of 137. TSH at 13.93 free T4 at 1.38 Pro-Segun is undetectable. COVID is negative Imaging Imaging interpretation: interpreted by ak Imaging Interpretation(s): Poor quality study with no significant clinical finding Medication Administration(s) Medication Administration History Sodium Chloride (Ns) 1,000 mls @ 85 mls/hr IV .[id number] AVERY Stop: 11/12/25 12:25 Last Admin: 10/13/25 13:25 Dose: 85 mls/hr Documented By: TM Discontinued Medications Lactated Ringer's (Lactated Ringers) 1,075 mls @ 1,075 mls/hr IV .Q1H ONE Stop: 10/13/25 13:21 Last Infusion: 10/13/25 13:25 Dose: Infused Documented By: Admin: 10/13/25 12:22 Dose: 1,075 mls/hr Documented By: SHAYAN Ceftriaxone Sodium/Dextrose (Rocephin/D5w 1gm Iv Premix) 1 gm in 50 mls @ 100 mls/hr IV X1 ONE Stop: 10/13/25 13:29 Last Infusion: 10/13/25 13:55 Dose: Infused Documented By: Admin: 10/13/25 13:25 Dose: 100 mls/hr Documented By: SHAYAN
[2025-10-13 12:56] LABS: Lactate (Lactic Acid) 3.0 mMol/L (0.4-2.0)
[2025-10-13 12:59] LABS: Basophils # (Auto) 0.0 Thou/mm3 (0.0-0.2); Basophils % (Auto) 1 % (0-2.5); Eosinophils # (Auto) 0.0 Thou/mm3 (0.0-0.5); Eosinophils % (Auto) 1 % (0-10); Hematocrit 40.7 % (36.0-46.0); Hemoglobin 12.9 g/dL (12.0-16.0); Immature Granulocytes Auto 0.01 Thou/mm3 (0.00-0.00); Lymphocytes # (Auto) 1.0 Thou/mm3 (1.0-4.8); Lymphocytes % (Auto) 23 % (10-50); Mean Corpuscular HGB Conc 31.7 g/dl (31.0-37.0); Mean Corpuscular Hemoglobin 28.2 pg (25.0-35.0); Mean Corpuscular Volume 89 fL (80-100); Monocytes # (Auto) 0.5 Thou/mm3 (0.0-0.8); Monocytes % (Auto) 11 % (0-12); Neutrophils # (Auto) 2.8 Thou/mm3 (1.8-7.7); Neutrophils % (Auto) 65 % (37-80); Nucleated Red Blood Cell # 0.00 Thou/mm3 (0.00-0.00); Nucleated Red Blood Cell % 0 /100 WBC (0); Platelet Count 94 Thou/mm3 (140-440); RDW Standard Deviation 51.5 fL (36.4-46.3); Red Blood Count 4.58 Miln/mm3 (4.00-5.20); White Blood Count 4.3 Thou/mm3 (3.6-11.0)
[2025-10-13] MEDS: SODIUM CHLORIDE 0.9% 1000 ML 1,000 ML 85 ML IV (13:25)
[2025-10-13] MEDS: cefTRIAXone/D5w 1gm IV premix 1 GM/50 ML BAG IV (13:25)
[2025-10-13 13:26] LABS: Alanine Aminotransferase 39 U/L (10-49); Albumin, Serum 4.6 gm/dL (3.5-5.0); Albumin/Globulin Ratio 2.1 (1.2-2.2); Alkaline Phosphatase 88 U/L (46-116); Anion Gap 10 (7-16); Aspartate Amino Transferase 33 U/L (0-34); BUN/Creatinine Ratio 24 Ratio (12-20); Bilirubin,Total 0.2 mg/dL (0.3-1.2); Blood Urea Nitrogen 12 mg/dL (9-23); Calcium 10.6 mg/dL (8.3-10.6); Calcium (Corrected) 10.6 mg/dL (8.5-10.1); Carbon Dioxide 28.2 mMol/L (20.0-31.0); Chloride 106 mMol/L (98-107); Creatinine (Component) 0.5 mg/dL (0.6-1.3); Estimated Creatinine Clearance 95.6 mL/min (>60); Free T4 (Free Thyroxine) 1.38 ng/dL (0.89-1.76); Globulin 2.2 gm/dL (2.3-3.5); Glucose 74 mg/dL (74-106); LDH (Lactate Dehydrogenase) 201 U/L (120-246); Lipase 39 U/L (12-53); Magnesium 1.7 mg/dL (1.6-2.6); Osmolality,Calculated 285 (275-295); Phosphorous 2.4 mg/dL (2.4-5.1); Potassium 4.5 mMol/L (3.4-5.1); Procalcitonin < 0.04 ng/ml (0.0-0.49); Sodium 144 mMol/L (136-145); Thyroid Stimulating Hormone 13.93 uIU/mL (0.55-4.78); Total Protein 6.8 gm/dL (5.7-8.2); Troponin I < 0.002 ng/mL (0.0-0.045); eGFR > 60 See Note
[2025-10-13 13:38] LABS: B-Type Natriuretic Peptide 137 pg/mL (0-100)
[2025-10-13 14:11] LABS: Influenza A Ag Negative; Influenza B Ag Negative
[2025-10-13 14:12] LABS: Collection Type, Urine Clean Catch
[2025-10-13 14:27] LABS: Bilirubin,Urine Negative (Negative); Blood,Urine Negative (Negative); Clarity,Urine Clear (Clear/Hazy); Color,Urine Colorless (Lt Yel-Yel); Culture Indicated,Urine Not Indicated; Glucose, Urine 1+ (Negative); Ketones,Urine Negative (Negative); Leukocyte Esterase,Urine Negative (Negative); Nitrite,Urine Negative (Negative); PH,Urine 6.5 (5.0-7.0); Protein,Urine Negative (Neg - Trace); RBC,Urine 1 /hpf (0-3); Specific Gravity,Urine 1.003 (1.001-1.035); Squamous Epithelial Cell,Urine < 1 /hpf (0-5); Urobilinogen,Urine Negative mg/dL (0.0-1.0); WBC,Urine 1 /hpf (0-5)
[2025-10-13 14:34] LABS: INR 1.0 (0.9-1.3); Partial Thromboplastin Time 29.2 Seconds (22.0-36.0); Prothrombin Time 10.3 Seconds (9.0-12.2)
[2025-10-13 15:45] LABS: Lactate (Lactic Acid) 1.5 mMol/L (0.4-2.0)
[2025-10-13 15:53] LABS: Reflex Lactate? Y
[2025-10-13 16:40] LABS: Respiratory Syncytial Virus Ag Negative (Negative)
--- NOTE | 2025-10-13 17:02 | ESHP_ITS ---
<Statement entered by Teresa Ashby MD - 10/13/25 19:46> Ms. Tejeda is a 24-year-old female with known history of Prader-Willi syndrome, seizures (not on medication) and history of recurrent hospitalization due to hypothermia and hypotension is brought to the ED from a longterm due to hypothermia and hypotension. History is obtained from caregiver who is at bedside stated patient has been wobbly for the past couple days and dizzy so she was taken to her PCP at [facility] recommended to go to the ED due to hypotension and hypothermia. In the ED patient's rectal temperature was measured to be 92.8 with MAP of 58-63. Lactic acid was elevated which downtrended to 1.5 after receiving 2 L of fluids. 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 Chest x-ray is unremarkable, COVID, influenza A and B are negative. Per caregiver patient has not exhibited any signs of acute illness, no diarrhea no vomiting, has not been around anyone sick. Patient was placed under Veronica hugger and repeat temperature improved to 98.4. P atient's MAP goal is 60. Will order adrenal crisis workup including ACTH and serum cortisol and will start patient on hydrocortisone 50 mg every 8 hours and if there is clinical improvement then will continue with a taper dose. Patient also has known subclinical hypothyroidism however TSH is above 10 therefore we will increase patient's home levothyroxine to 50 mcg Will continue to monitor clinical improvement and check temperature every 2 hours. Patient was seen and examined by me personally. I have directly supervised and reviewed documentation by the team resident and agree with its findings. ------- Plan of care was discussed with the attending, Dr. Bernardo Ashby, PGY-2 Documentation for date of: 10/13/25 HPI History of Present Illness History of present illness: This 24-year-old female with a history of Prader-Willi syndrome and remote seizures (not on AED) who presented to the ED on 10/13 with hypothermia, hypotension, and thrombocytopenia. No recent illness, fevers, chills, myalgia. Reports being cold, nasal congestion. Denies pain, sore throat, cough, chest pain, abdominal pain, paresthesias, diarrhea, constipation. She does not repeated falls with dizziness, then will fall asleep on the floor after the fall. Ophthalmic Asst at bedside, reports that patient is not at her baseline. Previously seen by Dr. Castillo, told her echo looked unremarkable x2. ED course: T 92.8. HR 50s. BP 98/46 MAP 63. Plt 94. Lactic acid 3 --> 1.5 after IVF. BNP 137, TSH 13.93, T4 1.38. UA negative for UTI, flu negative, RSV pending. EKG sinus bradycardic HR 44, QTc 402. CXR unremarkable. Bcx pending. Given 2.075L IVF and ceftiraxone 1 g IV in ED. Bare hugger placed --> repeat T 98.4. PMHx: Prader-Willi syndrome, seizures, developmental delay Allergies: morphine Home meds: Fluoxetine 60 mg PO daily Trazodone 100 mg PO QHS Loratadine 10 mg PO daily Docusate 100 mg PO BID Melatonin 5 mg PO QHS SgHx: spine surgeries with rods x4 SHx: enies smoking, alcohol, illicit drug use. Family report vaccinations up to date. Lives at longterm FHx: father's side of the family with DM, cardiac problems, HTN Review of Systems Review of Systems Narrative Review of Systems: 14 point ROS negative other than HPI Exam Vital Signs Temp Pulse Resp BP Pulse Ox O2 Del Method 92.8 F L 58 L 18 98/46 L 99 Room Air 10/13/25 14:15 10/13/25 14:15 10/13/25 14:15 10/13/25 14:15 10/13/25 14:15 10/13/25 14:15 Narrative Exam General: No acute distress Eye: PERRL, EOMI, normal conjunctiva, no scleral icterus HENT: Normocephalic, atraumatic, normal hearing, moist oral mucosa Neck: Supple, non-tender, no JVD, no lymphadenopathy Lungs: Clear to auscultation bilaterally, non-labored respirations, symmetric chest rise, no use of accessory muscles Heart: Normal S1 and S2, no S3 or S4 appreciated. Normal rate and regular rhythm, no murmurs, rubs gallops, or edema. Peripheral pulses intact bilaterally, capillary refill brisk distally Abdomen: Soft, non-tender, non-distended, normal bowel sounds. No guarding or rebound tenderness. Musculoskeletal: Normal range of motion and strength, no tenderness or swelling Skin: Skin is warm, dry, no rashes or lesions. Neurologic: Somnolent, perseverative on same questions, but answering questions appropriately. Alert, awake and oriented x3. CN II-XII grossly intact. No focal neuro deficits. No signs of meningeal irritation noted. Psychiatric: Cooperative, appropriate mood and affect Results: Labs 10/13/25 12:39 10/13/25 12:39 Labs: Short CBC 10/13/25 Range/Units 12:39 WBC 4.3 (3.6-11.0) Thou/mm3 Hgb 12.9 (12.0-16.0) g/dL Hct 40.7 (36.0-46.0) % Plt Count 94 L (140-440) Thou/mm3 BMP 10/13/25 12:39 Sodium 144 Potassium 4.5 Chloride 106 Carbon Dioxide 28.2 BUN 12 Creatinine 0.5 L Glucose 74 Calcium 10.6 Cardiac Enzymes 10/13/25 Range/Units 12:39 Troponin I < 0.002 (0.0-0.045) ng/mL Liver Function 10/13/25 Range/Units 12:39 Total Bilirubin 0.2 L (0.3-1.2) mg/dL AST 33 (0-34) U/L ALT 39 (10-49) U/L Alkaline Phosphatase 88 (46-116) U/L Albumin 4.6 (3.5-5.0) gm/dL Urine 10/13/25 Range/Units 13:50 Urine Color Colorless A (Lt Yel-Yel) Urine Clarity Clear (Clear/Hazy) Urine pH 6.5 (5.0-7.0) Ur Specific [place] 1.003 (1.001-1.035) Urine Protein Negative (Neg - Trace) Urine Glucose (UA) 1+ A (Negative) Quality Measures Quality Measures none Medications Home Medications and Allergies Home Medications ?Medication ?Instructions ?Recorded ?Confirmed ?Type docusate sodium 100 mg capsule 100 mg PO BID 01/23/25 01/23/25 History loratadine 10 mg tablet 10 mg PO QDAY 01/23/2501/23 History Allergies Allergy/AdvReac Type Severity Reaction Status Date / Time morphine Allergy Severe Rash Verified 10/13/25 11:53 Visit Medications Acetaminophen (Acetaminophen 325 Mg Tablet) 650 mg PO Q6H PRN PRN Reason: Fever >100.3 Stop: 11/12/25 16:54 Acetaminophen (Acetaminophen 325 Mg Tablet) 650 mg PO Q6H PRN PRN Reason: PAIN SCALE 1-3 (mild Stop: 11/12/25 16:54 Docusate Sodium (Docusate Sod 100 Mg Capsule) 100 mg PO QDAY AVERY; Protocol Stop: 11/13/25 08:59 Fluoxetine HCl (Fluoxetine Hcl 10 Mg Capsule) 60 mg PO QDAY AVERY Stop: 11/13/25 08:59 Sodium Chloride (Ns) 1,000 mls @ 85 mls/hr IV .[id number] AVERY Stop: 11/12/25 12:25 Last Admin: 10/13/25 13:25 Dose: 85 mls/hr Loratadine (Loratadine 10 Mg Tablet) 10 mg PO QDAY AVERY Stop: 11/13/25 08:59 Melatonin (Melatonin 3 Mg Tablet) 6 mg PO HS AVERY Stop: 11/12/25 20:59 Ondansetron HCl (Ondansetron Inj 2 Mg/Ml Inj 2 Ml) 4 mg IVP Q6H PRN; Protocol PRN Reason: NAUSEA OR VOMITING Stop: 11/12/25 16:54 Trazodone HCl (Trazodone Hcl 50 Mg Tablet) 150 mg PO HS [facility] Stop: 11/12/25 20:59 Discontinued Medications Lactated Ringer's (Lactated Ringers) 1,075 mls @ 1,075 mls/hr IV .Q1H ONE Stop: 10/13/25 13:21 Last Infusion: 10/13/25 13:25 Dose: Infused Ceftriaxone Sodium/Dextrose (Rocephin/D5w 1gm Iv Premix) 1 gm in 50 mls @ 100 mls/hr IV X1 ONE Stop: 10/13/25 13:29 Last Infusion: 10/13/25 13:55 Dose: Infused Assessment & Plan Plan This 24-year-old female with a history of Prader-Willi syndrome and remote seizures (not on AED) who presented to the ED on 10/13 with hypothermia, hypotension, and thrombocytopenia. Admitted for hypothermia and hypotension. Admitted for AMS, autonomic instability. #Acute encephalopathy i/s/o hypothermia, hypotension, bradycardia, subclinical hypothyroidism CXR unremarkable, electrolytes WNL, procal negative, lipase WNL, LDH WNL, UA negative for UTI, flu negative DDX: hypoperfusion, hypothermia, infection, shock Plan: - CTM vitals - Levothyroxine 50 mcg PO daily - Bare hugger PRN - Pending blood cx - Pending RSV #Hypothermia - resolved On admit T 92.8 --> Bare hugger --> 98.4 DDX: autonomic instability, distributive shock, hypothyroidism Plan: - q2h temp checks - Bare hugger warming measures PRN #Hypotension - improved Given 2.075L IVF in ED MAP continue to be <60 Lactic acid 3 --> 1.5 despite low MAPs BNP 137 Responded to IVF, MAP now in 60s DDX: autonomic instability, distributive shock, hypothyroidism Plan: - MAP goal >60 - CTM vitals - Pending ACTH, cortisol - Hydrocortisone 50 mg IV q8h (10/13-) #Bradycardia - improved HR 40-50s DDX: autonomic instability, distributive shock, hypothyroidism Plan: - CTM vitals #Subclinical hypothyroidism On admit TSH 13.93, T4 1.38 Plan: - Levothyroxine 50 mcg PO daily #Thrombocytopenia On admit plt 94 Plan: - SCDs for VTE ppx - CTM with daily CBC #Prader Willi syndrome Plan: - Fluoxetine 60 mg PO daily - Trazodone 100 mg PO QHS - held 2/2 AMS - Melatonin 5 mg PO QHS - held 2/2 AMS #Nasal congestion Plan: - Loratadine 10 mg PO daily Checklist Dispo: Admit to tele for q2h vital checks Lines: PIV Diet: NPO 2/2 AMS Bowel Reg: Docusate 100 mg PO BID (home med) VTE ppx: SCDs GI ppx: n/a Pain mgmt: Tylenol PO PRN Code status: full Plan discussed with Dr. Rubi Ashby and Dr. Bernardo Kilgore MD PGY1
--- NOTE | 2025-10-13 21:24 | PC.NURSE ---
per day shift nurse to hold hydrocortisone medication until acth labs result
--- NOTE | 2025-10-13 21:30 | PC.NURSE ---
confirmed with lab that acth and total cortisol takes approx 1-3 days to result (send out). spoke to dr. irizarry about holding off on hydrocortisone until labs results. per provider to reschedule medication for tomorrow
[2025-10-13] MEDS: DOCUSATE SOD 100 MG CAPSULE PO (21:52)
[2025-10-14] VITALS (9 sets, daily range): BP systolic 95–111; BP diastolic 57–67; PULSE 67–96; RESP 15–97; TEMP 36–36.6; O2SAT 95–98; BMI 22.6; BMI 22.4
[2025-10-14 05:20] LABS: Basophils # (Auto) 0.0 Thou/mm3 (0.0-0.2); Basophils % (Auto) 0 % (0-2.5); Eosinophils # (Auto) 0.0 Thou/mm3 (0.0-0.5); Eosinophils % (Auto) 0 % (0-10); Hematocrit 34.5 % (36.0-46.0); Hemoglobin 10.6 g/dL (12.0-16.0); Immature Granulocytes Auto 0.02 Thou/mm3 (0.00-0.00); Lymphocytes # (Auto) 1.0 Thou/mm3 (1.0-4.8); Lymphocytes % (Auto) 18 % (10-50); Mean Corpuscular HGB Conc 30.7 g/dl (31.0-37.0); Mean Corpuscular Hemoglobin 28.0 pg (25.0-35.0); Mean Corpuscular Volume 91 fL (80-100); Monocytes # (Auto) 0.4 Thou/mm3 (0.0-0.8); Monocytes % (Auto) 7 % (0-12); Neutrophils # (Auto) 4.0 Thou/mm3 (1.8-7.7); Neutrophils % (Auto) 74 % (37-80); Nucleated Red Blood Cell # 0.00 Thou/mm3 (0.00-0.00); Nucleated Red Blood Cell % 0 /100 WBC (0); Platelet Count 77 Thou/mm3 (140-440); RDW Standard Deviation 54.5 fL (36.4-46.3); Red Blood Count 3.79 Miln/mm3 (4.00-5.20); White Blood Count 5.5 Thou/mm3 (3.6-11.0)
[2025-10-14] MEDS: LEVOTHYROXINE SODIUM 25 MCG TABLET 50 MCG PO (05:32)
[2025-10-14 05:44] LABS: Anion Gap 11 (7-16); BUN/Creatinine Ratio 18 Ratio (12-20); Blood Urea Nitrogen 11 mg/dL (9-23); Calcium 9.2 mg/dL (8.3-10.6); Carbon Dioxide 29.0 mMol/L (20.0-31.0); Chloride 104 mMol/L (98-107); Creatinine (Component) 0.6 mg/dL (0.6-1.3); Estimated Creatinine Clearance 84.2 mL/min (>60); Glucose 92 mg/dL (74-106); Magnesium 1.5 mg/dL (1.6-2.6); Osmolality,Calculated 286 (275-295); Phosphorous 2.8 mg/dL (2.4-5.1); Potassium 4.1 mMol/L (3.4-5.1); Sodium 144 mMol/L (136-145); eGFR > 60 See Note
--- NOTE | 2025-10-14 07:54 | ESPR_ITS ---
<Statement entered by Brenna Resendez MD - 10/20/25 15:19> I reviewed above note and agree with findings and plans. I have also personally examined the patient with medicine team and went over assessment and plan with medical team including internal combustion engine assembler and resident physician. <Statement entered by Teresa Asbhy MD - 10/14/25 19:26> Pt is seen at bedside, pt is awake and alert and responds to questions. Pt denies pain. body temperature is within normal limits. ACTH and cortisol levels are pending. referral to dietition is made mainly to education pt's caregiver with a plan of nutritional intake in the setting of PWS. Dietitian recommends snacks in between meals. Will continue to monitor, pt will likely DC tomorrow. Pt will need to follow closely with her client relations associate outpatient to complete the work up. Patient was seen and examined by me personally. I have directly supervised and reviewed documentation by the team resident and agree with its findings. ------- Plan of care was discussed with the attending, Dr. Dipti Ashby, PGY-2 Documentation for date of: 10/14/25 Subjective Subjective Interval history: Per caregiver patient has been extensively worked up with endocrinology outpatient and was found to have a stable pituitary mass and currently being worked up for insulinoma because patient does become hypoglycemic. NAEO. Patient denies pain, reports still being hungry after eating breakfast. Denies new concerns at this time. Patient reports that she occasionally picks at her skin. Exam Vital Signs Temp Pulse Resp BP Pulse Ox O2 Del Method 96.9 F 75 15 100/67 95 Room Air 10/14/25 04:00 10/14/25 04:00 10/14/25 04:00 10/14/25 04:00 10/14/25 04:00 10/14/25 04:00 Narrative Exam General: No acute distress Eye: PERRL, EOMI, normal conjunctiva, no scleral icterus HENT: Normocephalic, atraumatic, normal hearing, moist oral mucosa Neck: Supple, non-tender, no JVD, no lymphadenopathy Lungs: Clear to auscultation bilaterally, non-labored respirations, symmetric chest rise, no use of accessory muscles Heart: Normal S1 and S2, no S3 or S4 appreciated. Normal rate and regular rhythm, no murmurs, rubs gallops, or edema. Peripheral pulses intact bilaterally, capillary refill brisk distally Abdomen: Soft, non-tender, non-distended, normal bowel sounds. No guarding or rebound tenderness. Musculoskeletal: Normal range of motion and strength, no tenderness or swelling Skin: Skin is warm, dry. Multiple linear scabs on forehead in various stages of healing Neurologic: Alert, awake and oriented x3. CN II-XII grossly intact. No focal neuro deficits. No signs of meningeal irritation noted. Psychiatric: Cooperative, appropriate mood and affect Objective Labs 10/14/25 04:09 10/14/25 04:09 Labs: Laboratory Results - last 24 hr 10/13/25 10/13/25 10/13/25 12:39 13:30 13:50 WBC 4.3 RBC 4.58 Hgb 12.9 Hct 40.7 MCV 89 MCH 28.2 MCHC 31.7 RDW Std Deviation 51.5 H Plt Count 94 L Neut % (Auto) 65 Lymph % (Auto) 23 [place] % (Auto) 11 Eos % (Auto) 1 Baso % (Auto) 1 Neut # (Auto) 2.8 Lymph # (Auto) 1.0 [place] # (Auto) 0.5 Eos # (Auto) 0.0 Baso # (Auto) 0.0 Immature Gran # (Auto) 0.01 H Absolute Nucleated RBC 0.00 Immature Gran % 0 Nucleated RBC % 0 PT INR APTT Sodium 144 Potassium 4.5 Chloride 106 Carbon Dioxide 28.2 Anion Gap 10 BUN 12 Creatinine 0.5 L Estim Creat Clear Calc 95.6 eGFR > 60 BUN/Creatinine Ratio 24 H Glucose 74 Calculated Osmolality 285 Lactic Acid 3.0 H Calcium 10.6 Corrected Calcium 10.6 H Phosphorus 2.4 Magnesium 1.7 Total Bilirubin 0.2 L AST 33 ALT 39 Alkaline Phosphatase 88 Lactate Dehydrogenase 201 Troponin I < 0.002 B-Natriuretic Peptide 137 H Total Protein 6.8 Albumin 4.6 Globulin 2.2 L Albumin/Globulin Ratio 2.1 Lipase 39 Procalcitonin < 0.04 TSH 13.93 H Free T4 1.38 Ur Collection Type Clean Catch Urine Color Colorless A Urine Clarity Clear Urine pH 6.5 Ur Specific [place] 1.003 Urine Protein Negative Urine Glucose (UA) 1+ A Urine Ketones Negative Urine Blood Negative Urine Nitrite Negative Urine Bilirubin Negative Urine Urobilinogen (Auto) Negative Ur Leukocyte Esterase Negative Urine RBC 1 Urine WBC 1 Ur Squamous Epith Cells < 1 Urine Bacteria None Ur Culture Indicated? Not Indicated Influenza A (Rapid) Negative Influenza B (Rapid) Negative RSV Rapid Misc Test Result 10/13/25 10/13/25 10/13/25 14:05 15:02 15:39 WBC RBC Hgb Hct MCV MCH MCHC RDW Std Deviation Plt Count Neut % (Auto) Lymph % (Auto) [place] % (Auto) Eos % (Auto) Baso % (Auto) Neut # (Auto) Lymph # (Auto) [place] # (Auto) Eos # (Auto) Baso # (Auto) Immature Gran # (Auto) Absolute Nucleated RBC Immature Gran % Nucleated RBC % PT 10.3 INR 1.0 APTT 29.2 Sodium Potassium Chloride Carbon Dioxide Anion Gap BUN Creatinine Estim Creat Clear Calc eGFR BUN/Creatinine Ratio Glucose Calculated Osmolality Lactic Acid 1.5 Calcium Corrected Calcium Phosphorus Magnesium Total Bilirubin AST ALT Alkaline Phosphatase Lactate Dehydrogenase Troponin I B-Natriuretic Peptide Total Protein Albumin Globulin Albumin/Globulin Ratio Lipase Procalcitonin TSH Free T4 Ur Collection Type Urine Color Urine Clarity Urine pH Ur Specific [place] Urine Protein Urine Glucose (UA) Urine Ketones Urine Blood Urine Nitrite Urine Bilirubin Urine Urobilinogen (Auto) Ur Leukocyte Esterase Urine RBC Urine WBC Ur Squamous Epith Cells Urine Bacteria Ur Culture Indicated? Influenza A (Rapid) Influenza B (Rapid) RSV Rapid Negative Misc Test Result 10/14/25 04:09 WBC 5.5 RBC 3.79 L Hgb 10.6 L D Hct 34.5 L MCV 91 MCH 28.0 MCHC 30.7 L RDW Std Deviation 54.5 H Plt Count 77 L Neut % (Auto) 74 Lymph % (Auto) 18 [place] % (Auto) 7 Eos % (Auto) 0 Baso % (Auto) 0 Neut # (Auto) 4.0 Lymph # (Auto) 1.0 [place] # (Auto) 0.4 Eos # (Auto) 0.0 Baso # (Auto) 0.0 Immature Gran # (Auto) 0.02 H Absolute Nucleated RBC 0.00 Immature Gran % 0 Nucleated RBC % 0 PT INR APTT Sodium 144 Potassium 4.1 Chloride 104 Carbon Dioxide 29.0 Anion Gap 11 BUN 11 Creatinine 0.6 Estim Creat Clear Calc 84.2 eGFR > 60 BUN/Creatinine Ratio 18 Glucose 92 Calculated Osmolality 286 Lactic Acid Calcium 9.2 Corrected Calcium Phosphorus 2.8 Magnesium 1.5 L Total Bilirubin AST ALT Alkaline Phosphatase Lactate Dehydrogenase Troponin I B-Natriuretic Peptide Total Protein Albumin Globulin Albumin/Globulin Ratio Lipase Procalcitonin TSH Free T4 Ur Collection Type Urine Color Urine Clarity Urine pH Ur Specific [place] Urine Protein Urine Glucose (UA) Urine Ketones Urine Blood Urine Nitrite Urine Bilirubin Urine Urobilinogen (Auto) Ur Leukocyte Esterase Urine RBC Urine WBC Ur Squamous Epith Cells Urine Bacteria Ur Culture Indicated? Influenza A (Rapid) Influenza B (Rapid) RSV Rapid Misc Test Result Cancelled Quality Measures Quality Measures none Assessment & Plan Assessment Current Active Medications: Generic Name Dose Route Start Last Admin Trade Name Freq PRN Reason Stop Dose Admin Acetaminophen 650 mg 10/13/25 16:55 Acetaminophen 325 Mg Tablet PO 11/12/25 16:54 Q6H PRN Fever >100.3 Acetaminophen 650 mg 10/13/25 16:55 Acetaminophen 325 Mg Tablet PO 11/12/25 16:54 Q6H PRN PAIN SCALE 1-3 (mild Docusate Sodium 100 mg 10/13/25 21:00 10/13/25 21:52 Docusate Sod 100 Mg Capsule PO 11/12/25 20:59 100 mg BID AVERY Administration Protocol Fluoxetine HCl 60 mg 10/14/25 09:00 Fluoxetine Hcl 10 Mg Capsule PO 11/13/25 08:59 QDAY AVERY Hydrocortisone Sodium Succinate 50 mg 10/14/25 17:45 Hydrocortisone Sod Succ Inj 100 Mg 2 Ml Vial IV 11/13/25 17:44 Q8H AVERY Levothyroxine Sodium 50 mcg 10/14/25 06:00 10/14/25 05:32 Levothyroxine Sodium 25 Mcg Tablet PO 11/13/25 05:59 50 mcg ACBR AVERY Administration Loratadine 10 mg 10/14/25 09:00 Loratadine 10 Mg Tablet PO 11/13/25 08:59 QDAY AVERY Ondansetron HCl 4 mg 10/13/25 16:55 Ondansetron Inj 2 Mg/Ml Inj 2 Ml IVP 11/12/25 16:54 Q6H PRN NAUSEA OR VOMITING Protocol Plan This 24-year-old female with a history of Prader-Willi syndrome and remote seizures (not on AED) who presented to the ED on 10/13 with hypothermia, hypotension, and thrombocytopenia. Admitted for hypothermia and hypotension. Admitted for AMS, autonomic instability. #Acute encephalopathy - improved #c/f myxedema coma vs adrenal insufficiency i/s/o hypothermia, hypotension, bradycardia, subclinical hypothyroidism CXR unremarkable, electrolytes WNL, procal negative, lipase WNL, LDH WNL, UA negative for UTI, flu negative, RSV negative DDX: hypoperfusion, hypothermia, infection, shock Plan: - CTM vitals - Levothyroxine 50 mcg PO daily - Veronica hugger PRN - Pending blood cx, ACTH, cortisol #Hypothermia - resolved On admit T 92.8 --> Bare hugger --> 98.4 DDX: autonomic instability, distributive shock, hypothyroidism Plan: - CTM vitals - Veronica hugger warming measures PRN #Hypotension - improved Given 2.075L IVF in ED MAP continue to be <60 Lactic acid 3 --> 1.5 despite low MAPs BNP 137 Responded to IVF, MAP now in 60s DDX: autonomic instability, distributive shock, hypothyroidism Plan: - MAP goal >60 - CTM vitals - Pending ACTH, cortisol - Hydrocortisone 50 mg IV q8h (10/13) --> BID (10/14) #Bradycardia - improved HR 40-50s DDX: autonomic instability, distributive shock, hypothyroidism Plan: - CTM vitals #Hypothyroidism On admit TSH 13.93, T4 1.38 Plan: - Levothyroxine 50 mcg PO daily #Thrombocytopenia On admit plt 94 --> 77 Plan: - SCDs for VTE ppx - CTM with daily CBC #Prader Willi syndrome Plan: - Fluoxetine 60 mg PO daily - Trazodone 100 mg PO QHS - held 2/2 AMS - Melatonin 5 mg PO QHS - held 2/2 AMS #Seizures follows with Dr. Moon Plan: - Vimpat 100 mg PO BID #Hx psychiatric disorder Plan: - Risperidone 0.5 mg PO BID (home med) - Olanzapine 2.5 mg PO BID - held 2/2 AMS #Nasal congestion Plan: - Loratadine 10 mg PO daily #Stable pituitary mass Plan: - f/u outpatient #c/f Insulinoma given hx of hypoglycemic episodes Plan: - f/u outpatient - q6h blood glucose checks Checklist Dispo: Admit to tele for q2h vital checks Lines: PIV Diet: NPO 2/2 AMS Bowel Reg: Docusate 100 mg PO BID (home med) VTE ppx: SCDs GI ppx: n/a Pain mgmt: Tylenol PO PRN Code status: full Plan discussed with Dr. Rubi Ashby and Dr. Dipti Kilgore MD PGY1
[2025-10-14] MEDS: Magnesium Sulfate 4 GM Ivpb 4 GM/50 ML BAG IV (08:06)
[2025-10-14] MEDS: DOCUSATE SOD 100 MG CAPSULE PO ×2 (08:06→21:09)
--- NOTE | 2025-10-14 11:39 | PC.SS ---
Patient is alert/oriented. SS received background information from [facility]. Patient resides at [facility]. Patient's parents, Gerald and Kelly are conservators. Patient is ambulatory and independent with ADL's. No DME. Patient has dx: Prader-Willi Syndrome. Patient does not require assistance at [facility]. She does have 24 hour care staff monitoring her. PCP: Dr. Escamilla at [facility] in [place]. Pharmacy: [facility] in [place]. Patient is connected with [facility]. [facility] global transportation manager is Aviva Thurman. Discharge plan is to return to [facility]. Alt medical decision maker: Father, Gerald and step mother, Kelly @ [phone] and [phone] Transportation: [facility] rSilvana @ [phone] or [phone]
[2025-10-14] MEDS: LACOSAMIDE 50 MG TABLET 100 MG PO ×2 (11:41→21:09)
[2025-10-14] MEDS: HYDROCORTISONE SOD SUCC INJ 100 MG 2 ML VIAL 50 MG IV (21:09)
[2025-10-15] VITALS: BP 110/68; PULSE 83; PULSE 88; RESP 22; TEMP 36.8; O2SAT 97
[2025-10-15 04:00] VITALS: BP 114/74; PULSE 103; PULSE 96; RESP 16; TEMP 36.8; O2SAT 97
[2025-10-15 04:54] VITALS: BMI 21.4
[2025-10-15 05:00] LABS: Basophils # (Auto) 0.0 Thou/mm3 (0.0-0.2); Basophils % (Auto) 0 % (0-2.5); Eosinophils # (Auto) 0.0 Thou/mm3 (0.0-0.5); Eosinophils % (Auto) 0 % (0-10); Hematocrit 35.3 % (36.0-46.0); Hemoglobin 11.1 g/dL (12.0-16.0); Immature Granulocytes Auto 0.03 Thou/mm3 (0.00-0.00); Lymphocytes # (Auto) 0.5 Thou/mm3 (1.0-4.8); Lymphocytes % (Auto) 7 % (10-50); Mean Corpuscular HGB Conc 31.4 g/dl (31.0-37.0); Mean Corpuscular Hemoglobin 27.9 pg (25.0-35.0); Mean Corpuscular Volume 89 fL (80-100); Monocytes # (Auto) 0.1 Thou/mm3 (0.0-0.8); Monocytes % (Auto) 2 % (0-12); Neutrophils # (Auto) 6.9 Thou/mm3 (1.8-7.7); Neutrophils % (Auto) 91 % (37-80); Nucleated Red Blood Cell # 0.02 Thou/mm3 (0.00-0.00); Nucleated Red Blood Cell % 0 /100 WBC (0); Platelet Count 84 Thou/mm3 (140-440); RDW Standard Deviation 54.5 fL (36.4-46.3); Red Blood Count 3.98 Miln/mm3 (4.00-5.20); White Blood Count 7.6 Thou/mm3 (3.6-11.0)
[2025-10-15] MEDS: LEVOTHYROXINE SODIUM 25 MCG TABLET 50 MCG PO (05:13)
[2025-10-15 05:34] LABS: Anion Gap 13 (7-16); BUN/Creatinine Ratio 19 Ratio (12-20); Blood Urea Nitrogen 15 mg/dL (9-23); Calcium 8.8 mg/dL (8.3-10.6); Carbon Dioxide 27.3 mMol/L (20.0-31.0); Chloride 101 mMol/L (98-107); Creatinine (Component) 0.8 mg/dL (0.6-1.3); Estimated Creatinine Clearance 60.4 mL/min (>60); Glucose 230 mg/dL (74-106); Magnesium 1.9 mg/dL (1.6-2.6); Osmolality,Calculated 289 (275-295); Phosphorous 3.1 mg/dL (2.4-5.1); Potassium 3.9 mMol/L (3.4-5.1); Sodium 141 mMol/L (136-145); eGFR > 60 See Note
[2025-10-15 07:02] VITALS: PULSE 86; RESP 27; RESP 96
--- NOTE | 2025-10-15 07:43 | CHAP ---
Patient ws visited by a Spiritual Care Volunteer on 10/14/2025 between 0900 and 1200 and received comfort, encouragement and/or prayer.
[2025-10-15 08:00] VITALS: BP 107/76; PULSE 92; PULSE 98; RESP 16; TEMP 36.2; O2SAT 96
[2025-10-15 08:17] LABS: Glucose Estimated Average 97 mg/dL (80-131); Hemoglobin A1C 5.0 % Hgb (4.8-6.0)
[2025-10-15] MEDS: LACOSAMIDE 50 MG TABLET 100 MG PO (09:33)
[2025-10-15] MEDS: DOCUSATE SOD 100 MG CAPSULE PO (09:33)
--- NOTE | 2025-10-15 09:49 | ESDS_ITS ---
<Statement entered by Brenna Resendez MD - 10/20/25 15:23> I reviewed above note and agree with findings and plans. I have also personally examined the patient with medicine team and went over assessment and plan with medical team including news department intern and resident physician. Planned Discharge Date 10/15/25 DS: Providers Provider Date of admission: 10/13/25 16:56 Primary care physician: John Millard MD Admitting Provider: Bora Chang MD Attending Provider on Admission: Bora Chang MD Consults: 10/13/25 17:01 Referral Registered Dietitian Routine Comment: Attending Provider on DC: Dr. Brenna Resendez Discharging Provider: Keiry Kilgore MD DS: Diagnosis Problem List Completed Was Problem List Reviewed/Reconciled?: Yes Hospital Course Hospital Course Hospital course: Hospital Course Ms. Tejeda is a 24-year-old female with PMH of Prader-Willi syndrome, seizures who was brought to the ED on 10/13 with hypothermia, hypotension, and bradycardia with AMS. Patient has recurrent hospitalizations for similar presentation. In the ED, patient's rectal temperature was 92.8 with MAP 58-63 and bradycardia in 50s. Patient was AOx3 and able to answer questions appropriately but mentation was sluggish. Lactic acid was 3 on admission. Patient was given 2.075 L IVF and placed on Veronica hugger in ED with improvement of vitals, mentation, and downtrending lactic acid. CXR unremarkable, electrolytes WNL, procal negative, lipase WNL, LDH WNL, UA negative for UTI, flu negative, RSV negative. TSH 13.93, T4 1.38 and patient was started on Levothyroxine 50 mcg PO daily in addition to Hydrocortisone 50 mg IV q8h which was then downtitrated to BID. Differentials included myxedema coma 2/2 hypothyroidism, autonomic instability i/s/o Prader Willi, or adrenal insufficiency. Blood cx NGTD at 24 hours. Pending ACTH and total cortisol levels, which pt will need to follow up outpatient for results. Patient was responsive to management and has returned to baseline mentation. Vitals have remained stable and patient is amenable to discharge. Patient and caregiver were given dietary education about Prader Willi syndrome. Patient hemodynamically stable. Labs reviewed and stable. Patient stable and medically cleared for discharge. Diagnoses #Acute encephalopathy - improved #c/f myxedema coma vs adrenal insufficiency #Hypothermia - resolved #Hypotension - improved #Bradycardia - improved #Hypothyroidism #Thrombocytopenia #Prader Willi syndrome #Seizures #Hx psychiatric disorder #Nasal congestion #Stable pituitary mass #c/f Insulinoma Discharge Instructions - Follow up with PCP within 1 week of discharge, if you do not have a primary care physician you can come see us at the [facility] by calling [phone] - Follow up with outpatient endocrinology - Take Levothyroxine 50 mcg daily 30 minutes before eating anything - Continue to take Vimpat 100 mg PO BID and follow up with your neurologist - Continue rest of medications as previously prescribed - Return to the ED or call EMS if symptoms return and/or worsen Keiry Kilgore MD PGY1 Time Spent with Patient Time attestation: Total time spent providing and/or coordinating discharge services: Time spent: Greater than 30 minutes Exam Vital Signs Temp Pulse Resp BP Pulse Ox O2 Del Method 97.2 F 98 16 107/76 96 Room Air 10/15/25 08:00 10/15/25 08:00 10/15/25 08:00 10/15/25 08:00 10/15/25 08:00 10/15/25 08:00 Narrative Exam General: No acute distress Eye: PERRL, EOMI, normal conjunctiva, no scleral icterus HENT: Normocephalic, atraumatic, normal hearing, moist oral mucosa Neck: Supple, non-tender, no JVD, no lymphadenopathy Lungs: Clear to auscultation bilaterally, non-labored respirations, symmetric chest rise, no use of accessory muscles Heart: Normal S1 and S2, no S3 or S4 appreciated. Normal rate and regular rhythm, no murmurs, rubs gallops, or edema. Peripheral pulses intact bilaterally, capillary refill brisk distally Abdomen: Soft, non-tender, non-distended, normal bowel sounds. No guarding or rebound tenderness. Musculoskeletal: Normal range of motion and strength, no tenderness or swelling Skin: Skin is warm, dry. Multiple linear scabs on forehead in various stages of healing Neurologic: Alert, awake and oriented x3. CN II-XII grossly intact. No focal neuro deficits. No signs of meningeal irritation noted. Psychiatric: Cooperative, appropriate mood and affect Discharge Plan Plan Patient Disposition: HOME (Self Care) Care Plan Goals: - Follow up with PCP within 1 week of discharge, if you do not have a primary care physician you can come see us at the [facility] by calling [phone] - Follow up with outpatient endocrinology - Take Levothyroxine 25 mcg daily 30 minutes before eating anything - Continue to take Vimpat 100 mg PO BID and follow up with your neurologist - Continue rest of medications as previously prescribed - Return to the ED or call EMS if symptoms return and/or worsen Prescriptions/Referrals Prescriptions/Med Rec: New levothyroxine 25 mcg Tablet 50 mcg PO ACBR 30 Days Qty: 30 0RF lacosamide 50 mg Tablet 100 mg PO BID 30 Days Qty: 60 0RF Continued docusate sodium 100 mg capsule 100 mg PO BID loratadine 10 mg tablet 10 mg PO QDAY trazodone 50 mg Tablet 50 mg PO HS Qty: 30 0RF fluoxetine 60 mg tablet 60 mg PO QDAY Qty: 30 0RF melatonin 5 mg capsule 5 mg PO HS Discontinued levothyroxine [Synthroid] 25 mcg tablet 25 mcg PO QDAY Qty: 14 0RF Gvoke 1 mg/0.2 mL solution 1 mg subcut Q20M PRN (Reason: hypoglycemia) Qty: 0.2 0RF Rx Instructions: until target blood sugar attained Referrals: John Millard MD [Primary Care Provider, Family Practice] Patient/Caregiver Discharge Instructions Education Materials: Hypotension Dc, ED Hypothermia Treatment, ED Hypothermia Prevention Print Language: Afghan Stand Alone Forms: [employer] Award Info., Patient Portal Info Letter Discharge Order Discharge Orders: Discharge (Routine); Ordered 10/15/25 Ordered By: Teresa Ashby Quality Discharge Quality Measures VTE prophylaxis
[2025-10-15 12:00] VITALS: PULSE 110
--- NOTE | 2025-10-15 12:17 | PC.NURSE ---
Report given to Marion from [facility]
[2025-10-15 12:30] VITALS: BP 105/58; PULSE 92; RESP 16; TEMP 36.6; O2SAT 97
[2025-10-17 06:45] LABS: ACTH, Plasma* 22 pg/mL (6-50)
[2025-10-20 06:47] LABS: Cortisol,total,LC/MS/MS* 37.1 mcg/dL
== END 2025-10-15 12:36 | disposition home or self-care (01) | DRG 71 ==
LOC: SERX 15:44 → SERHOLD 17:08 → S2NX 22:45
PROVIDERS: Registered Nurse General Practice; Admitting Provider Student in an Organized Health Care Education/Training Program; Emergency Provider Emergency Medicine; PCP Family Medicine; Visit Provider Student in an Organized Health Care Education/Training Program
DX: G93.40 Encephalopathy, unspecified (principal); Q87.11 Prader-Willi syndrome; R26.81 Unsteadiness on feet; R68.0 Hypothermia, not associated with low environmental temperature; E03.8 Other specified hypothyroidism; R56.9 Unspecified convulsions; D69.6 Thrombocytopenia, unspecified; I95.9 Hypotension, unspecified; R00.1 Bradycardia, unspecified; R09.81 Nasal congestion; Z79.890 Hormone replacement therapy; Z79.899 Other long term (current) drug therapy; Z88.5 Allergy status to narcotic agent
CPT/HCPCS: 36415; 51701; 71045; 80048; 80053; 81001; 82024; 82533; 83036; 83605; 83615; 83690; 83735; 83880; 84100; 84145; 84439; 84443; 84484; 85025; 85610; 85730; 87040; 87502; 87634; 87635; 93005; 96361; 96365; 99284; J0696; J1720; J3475; J7030; J7120; A9270